=== PATIENT | female | born 1930 | race Caucasian/White ===

== ENCOUNTER → 2016-06-05 | Outpatient (CLI) | payer MEDICARE ==
--- NOTE | 2016-06-08 07:52 | MM ---
Reason for exam: additional evaluation requested from abnormal screening. Last mammogram was performed 1 month ago. History: Patient is postmenopausal. Stereotactic core biopsy of the right breast, 1997. Physical Findings: Nurse did not find any significant physical abnormalities on exam. MG 3D Work Up W/Cad RT LM, CC with magnification, and LM with magnification view(s) were taken of the right breast. Prior study comparison: May 15, 2016, bilateral MG 3d screening mammo w/cad. March 18, 2015, bilateral MG screening mammo w CAD. There are scattered fibroglandular densities. Finding: There are typically benign calcifications in the right breast. There is a chronic nodularity in the right breast. No significant changes in finding since May 15, 2016 and March 18, 2015. These results were verbally communicated with the patient and result sheet given to the patient on 06/05/16. ASSESSMENT: Benign, BI-RAD 2 RECOMMENDATION: Return to routine screening mammogram schedule for both breasts.
== END | disposition home or self-care (01) ==
LOC: RADMAMWWP 13:57
PROVIDERS: ATTEND Family Medicine
DX: R92.8 Other abnormal and inconclusive findings on diagnostic imaging of breast (principal)
CPT/HCPCS: 77051; G0206; G0279

== ENCOUNTER → 2017-08-13 | Outpatient (CLI) | payer MEDICARE ==
--- NOTE | 2017-08-16 11:28 | MM ---
Reason for exam: screening (asymptomatic). Last mammogram was performed 1 year and 2 months ago. History: Patient is postmenopausal. Stereotactic core biopsy of the right breast, 1997. Physical Findings: A clinical breast exam by your physician is recommended on an annual basis and results should be correlated with mammographic findings. MG 3D Screening Mammo W/Cad Bilateral CC and MLO view(s) were taken. Prior study comparison: June 05, 2016, right breast MG 3d work up w/cad RT. May 15, 2016, bilateral MG 3d screening mammo w/cad. There are scattered fibroglandular densities. Finding #1: There is a stable mass in the upper outer quadrant of the right breast back to 2015. Finding #2: There are typically benign diffuse/scattered calcifications in both breasts. No suspicious abnormality. No significant changes in finding since June 05, 2016 and May 15, 2016. ASSESSMENT: Benign, BI-RAD 2 RECOMMENDATION: Routine screening mammogram of both breasts in 1 year.
== END | disposition home or self-care (01) ==
LOC: RADMAMWWP 15:10
PROVIDERS: ATTEND Family Medicine
DX: Z12.31 Encounter for screening mammogram for malignant neoplasm of breast (principal)
CPT/HCPCS: 77063; 77067

== ENCOUNTER 2018-06-08 10:59 | Observation (INO) | payer MEDICARE ==
--- NOTE | 2018-06-08 12:18 | ED ---
Chest Pain HPI - General Chief Complaint: Chest Pain Stated Complaint: L Arm Pain, SOB Time Seen by Provider: 06/08/18 11:13 Source: patient, RN notes reviewed Mode of arrival: wheelchair Limitations: no limitations - History of Present Illness Initial Comments: 88-year-old female presented emergency Department chief complaint of left arm pain, low heart rate. Patient states that she just feels this abnormal sensation to left-sided chest she does not describe wrist pain but states that she feels like her heart is not beating properly. She did take nitro last night which helped. Patient states that she woke up today with left arm pain. Patient is concerned that she's does have cardiac history. Patient states last stress test or workup was several years ago. She has had some intermittent shortness breath no current shortness breath no fever no chills no URI symptoms. Patient denies any nausea vomiting diarrhea constipation. - Related Data Home Medications Medication Instructions Recorded Confirmed Lisinopril [Zestril] 10 mg PO PC-SUPPER 06/08/18 06/08/18 Omeprazole [PriLOSEC] 20 mg PO PC-BRKFST 06/08/18 06/08/18 Rosuvastatin [Crestor] 10 mg PO PC-SUPPER 06/08/18 06/08/18 Allergies Allergy/AdvReac Type Severity Reaction Status Date / Time No Known Allergies Allergy Verified 06/08/18 12:47 Review of Systems ROS Statement: Those systems with pertinent positive or pertinent negative responses have been documented in the HPI. ROS Other: All systems not noted in ROS Statement are negative. EKG Findings - EKG Comments: EKG Findings:: EKG performed at 12:26 sinus bradycardia with a rate of 59 ND 174 QRS 88 QT/QTC 414/409 Past Medical History Past Medical History: GERD/Reflux, Hyperlipidemia, Hypertension History of Any Multi-Drug Resistant Organisms: None Reported Past Surgical History: Hysterectomy, Orthopedic Surgery Additional Past Surgical History / Comment(s): L carpal tunnel Past Psychological History: No Psychological Hx Reported Smoking Status: Never smoker Past Alcohol Use History: None Reported Past Drug Use History: None Reported General Exam General appearance: alert, in no apparent distress Head exam: Present: atraumatic, normocephalic, normal inspection Eye exam: Present: normal appearance, PERRL, EOMI. Absent: scleral icterus, conjunctival injection, periorbital swelling ENT exam: Present: normal exam, normal oropharynx, mucous membranes moist, TM's normal bilaterally Neck exam: Present: normal inspection, full ROM. Absent: tenderness, meningismus, lymphadenopathy Respiratory exam: Present: normal lung sounds bilaterally. Absent: respiratory distress, wheezes, rales, rhonchi, stridor Cardiovascular Exam: Present: regular rate, normal rhythm, normal heart sounds. Absent: systolic murmur, diastolic murmur, rubs, gallop, clicks GI/Abdominal exam: Present: soft, normal bowel sounds. Absent: distended, tenderness, guarding, rebound, rigid Neurological exam: Present: alert, oriented X3, CN II-XII intact Skin exam: Present: warm, dry, intact, normal color. Absent: rash Course Vital Signs 06/08/18 11:05 Temperature 98 F Pulse Rate 63 Respiratory 18 Rate Blood Pressure 145/80 O2 Sat by Pulse 100 Oximetry Chest Pain [facility] 88-year-old female presented for left arm pain, chest pressure. Patient will be admitted for ACS rule out. Patient had prior relief with nitro. Patient's lab work, EKG unremarkable. Disposition Clinical Impression: Chest pain Disposition: ADMITTED IP TO THIS HOSP Condition: Stable Referrals: Luz Donohue MD [Primary Care Provider] - 1-2 days
--- NOTE | 2018-06-08 12:25 | XR ---
EXAMINATION TYPE: XR chest 2V DATE OF EXAM: 06/08/2018 COMPARISON: 02/07/2010 TECHNIQUE: PA and lateral views submitted. HISTORY: Chest pain FINDINGS: The lungs are clear and there is no pneumothorax, pleural effusion, or focal pneumonia. Atheroscler otic change aorta. No overt failure. Hypertrophic and degenerative changes of the spine. IMPRESSION: 1. No acute process.
[2018-06-08 12:47] LABS: INR 0.9 (<1.2); Partial Thromboplastin Time 23.1 sec (22.0-30.0); Prothrombin Time 10.2 sec (9.0-12.0)
[2018-06-08 12:48] LABS: Basophils # (A) 0.1 k/uL (0-0.2); Basophils % (A) 1 %; Eosinophils # (A) 0.3 k/uL (0-0.7); Eosinophils % (A) 3 %; HCT 40.3 % (34.0-46.0); Lymphocytes # (A) 2.4 k/uL (1.0-4.8); Lymphocytes % (A) 28 %; MCH 31.8 pg (25.0-35.0); MCHC 34.6 g/dL (31.0-37.0); MCV 91.9 fL (80.0-100.0); Mean Platelet Volume 7.6; Monocytes # (A) 0.4 k/uL (0-1.0); Monocytes % (A) 4 %; Neutrophils # (A) 5.3 k/uL (1.3-7.7); Neutrophils % (A) 62 %; Platelet Count 213 k/uL (150-450); RBC 4.39 m/uL (3.80-5.40); RDW 13.2 % (11.5-15.5); WBC 8.5 k/uL (3.8-10.6)
[2018-06-08 13:00] LABS: Anion Gap 7 mmol/L; Blood Urea Nitrogen 21 mg/dL (7-17); Calcium 9.5 mg/dL (8.4-10.2); Carbon Dioxide 26 mmol/L (22-30); Chloride 109 mmol/L (98-107); Glucose 119 mg/dL (74-99); Magnesium 2.1 mg/dL (1.6-2.3); Potassium 4.3 mmol/L (3.5-5.1); Sodium 142 mmol/L (137-145)
[2018-06-08 13:01] LABS: ALT 28 U/L (9-52); AST 18 U/L (14-36); Albumin 4.1 g/dL (3.5-5.0); Alkaline Phosphatase 48 U/L (38-126); Total Bilirubin 0.3 mg/dL (0.2-1.3); Total Protein 6.5 g/dL (6.3-8.2)
[2018-06-08 13:02] LABS: Creatine Kinase 47 U/L (30-135)
[2018-06-08 13:14] LABS: Creatine Kinase MB 1.5 ng/mL (0.0-2.4); Troponin I <0.012 ng/mL (0.000-0.034)
[2018-06-08] MEDS ORDERED: NITROGLYCERIN SL TABS 0.4 MG TAB SUBLINGUAL PRN (13:50)
[2018-06-08] MEDS ORDERED: HEPARIN SODIUM,PORCINE 5,000 UNIT/ML 1 ML VIAL IV ONE (13:50)
[2018-06-08] MEDS ORDERED: ASPIRIN 81 MG PO STA (13:50)
[2018-06-08] MEDS ORDERED: HEPARIN SOD,PORK IN 0.45% NACL 25,000 UNIT in 0.45% NACL 1 250ML.BAG IV SCH (14:00)
--- NOTE | 2018-06-08 16:52 | P.HPIM ---
History of Present Illness 88-year-old female came in at the pain in the posterior aspect of the left arm denied any clear-cut chest pain was mild pain lasted only for a few minutes relieved with nitroglycerin. Patient gave me a vague history that she had pain in the left chest wall ago never had any heart problems does follow with Dr. Mckeon on for leaky valves. Patient denied any fever chills patient had lightheadedness patient chest pain is nonexertional nonpleuritic not associated with food. since I can't find her EKG order another EKG now. Patient denied any cough runny nose. Chest x-ray did not show any pneumonic process. Review of Systems REVIEW OF SYSTEMS: CONSTITUTIONAL: No fever, no malaise, no fatigue. HEENT: No recent visual problems or hearing problems. Denied any sore throat. CARDIOVASCULAR: No orthopnea, PND, no palpitations, no syncope. PULMONARY: No shortness of breath, no cough, no hemoptysis. GASTROINTESTINAL: No diarrhea, no nausea, no vomiting, no abdominal pain. NEUROLOGICAL: No headaches, no weakness, no numbness. HEMATOLOGICAL: Denies any bleeding or petechiae. GENITOURINARY: Denies any burning micturition, frequency, or urgency. MUSCULOSKELETAL/RHEUMATOLOGICAL: Denies any joint pain, swelling, or any muscle pain. ENDOCRINE: Denies any polyuria or polydipsia. The rest of the 14-point review of systems is negative. Past Medical History Past Medical History: GERD/Reflux, Hyperlipidemia, Hypertension History of Any Multi-Drug Resistant Organisms: None Reported Past Surgical History: Hysterectomy, Orthopedic Surgery Additional Past Surgical History / Comment(s): L carpal tunnel Past Psychological History: No Psychological Hx Reported Smoking Status: Never smoker Past Alcohol Use History: None Reported Past Drug Use History: None Reported Medications and Allergies Home Medications Medication Instructions Recorded Confirmed Type Ezetimibe [Zetia] 10 mg PO PC-SUPPER 06/08/18 06/08/18 History Lisinopril [Zestril] 10 mg PO PC-SUPPER 06/08/18 06/08/18 History Omeprazole [PriLOSEC] 20 mg PO PC-BRKFST 06/08/18 06/08/18 History Rosuvastatin [Crestor] 10 mg PO PC-SUPPER 06/08/18 06/08/18 History Allergies Allergy/AdvReac Type Severity Reaction Status Date / Time No Known Allergies Allergy Verified 06/08/18 12:47 Physical Exam Vitals: Vital Signs Temp Pulse Resp BP Pulse Ox 06/08/18 15:00 60 18 136/63 98 06/08/18 11:05 98 F 63 18 145/80 100 Intake and Output 06/08/18 06/08/18 06/08/18 06:59 14:59 22:59 Other: Weight 64.41 kg PHYSICAL EXAMINATION: GENERAL: The patient is alert and oriented x3, not in any acute distress. Well developed, well nourished. HEENT: Pupils are round and equally reacting to light. EOMI. No scleral icterus. No conjunctival pallor. Normocephalic, atraumatic. No pharyngeal erythema. No thyromegaly. CARDIOVASCULAR: S1 and S2 present. there is a loud P2 there may be a mitral systolic murmur PULMONARY: Chest is clear to auscultation, no wheezing or crackles. ABDOMEN: Soft, nontender, nondistended, normoactive bowel sounds. No palpable organomegaly. MUSCULOSKELETAL: No joint swelling or deformity. EXTREMITIES: No cyanosis, clubbing, or pedal edema. NEUROLOGICAL: Gross neurological examination did not reveal any focal deficits. SKIN: No rashes. Results CBC & Chem 7: 06/08/18 12:02 06/08/18 12:02 Labs: Abnormal Lab Results - Last 24 Hours (Table) 06/08/18 Range/Units 12:02 Chloride 109 H (98-107) mmol/L BUN 21 H (7-17) mg/dL Glucose 119 H (74-99) mg/dL Assessment and Plan Plan: -chest pain we'll rule out a concurrent syndromes with stool more sets of troponins I'll obtain an EKG cardiology will evaluate the patient stress test as per them -Gastroesophageal reflux disease - hyperlipidemia -Hypertension -Possible mitral regurgitationand possible pulmonary hypertension
[2018-06-08] MEDS ORDERED: LISINOPRIL 10 MG TAB PO SCH (18:30)
[2018-06-08] MEDS ORDERED: EZETIMIBE 10 MG TAB PO SCH (18:30)
[2018-06-08] MEDS ORDERED: ATORVASTATIN 20 MG TAB PO SCH (18:30)
[2018-06-08 19:05] LABS: Creatine Kinase 43 U/L (30-135)
[2018-06-08 19:17] LABS: Creatine Kinase MB 1.4 ng/mL (0.0-2.4); Troponin I <0.012 ng/mL (0.000-0.034)
[2018-06-08 23:40] LABS: Creatine Kinase 38 U/L (30-135)
[2018-06-08 23:41] LABS: Cholesterol 106 mg/dL (<200); HDL Cholesterol 49 mg/dL (40-60); LDL Cholesterol,Calculated 39 mg/dL (0-99); Triglycerides 92 mg/dL (<150)
[2018-06-08 23:53] LABS: Creatine Kinase MB 1.3 ng/mL (0.0-2.4); Troponin I <0.012 ng/mL (0.000-0.034)
[2018-06-09] MEDS ORDERED: PANTOPRAZOLE 40 MG TABLET PO SCH (07:30)
[2018-06-09] MEDS ORDERED: ASPIRIN 325 MG TAB PO SCH (09:00)
[2018-06-09] MEDS ORDERED: CAFFEINE CITRATE 60 MG/3 ML VIAL IV PRN (09:07)
[2018-06-09] MEDS ORDERED: REGADENOSON 0.4 MG/5 ML SYRINGE IV ONE (09:07)
--- NOTE | 2018-06-09 11:09 | P.CRDCN ---
History of Present Illness History of present illness: This is a pleasant 88-year-old female past medical history significant for hypertension and dyslipidemia. She denies history of coronary artery disease. She follows with Dr. Mckeon in the office. We have been asked to see her in consultation for symptoms of chest discomfort. She states yesterday she felt an odd sensation in the chest described as "heart not beating right" but denies any actual pain. Also felt a pain in the left upper arm described as an ache, lasting for approximately 8 hours off and on all day yesterday. She cannot specifically state and aggravating or alleviating factors is that the pain was intermittent all day. She did do some moving in her kitchen to wash the counters for a new microwave the day before. Denies shortness of breath, palpitations, nausea, vomiting or diaphoresis. Pain in the arm has subsided but she feels a sore ache in between the shoulder blades that started last night. EKG reveals sinus bradycardia heart rate [address] or T wave abnormalities noted. Chest x-ray is negative for acute cardiopulmonary process. Laboratory data reviewed, WBC 8.5, hemoglobin 14, platelets 213, sodium 142, potassium 4.3, creatinine 0.62, magnesium 2.1, cardiac enzymes negative 3, LDL 39 HDL 49. Current cardiac medications include lisinopril 10 mg daily and rosuvastatin 10 mg daily. Most recent stress test performed in the office 2016 revealed good exercise tolerance with normal EKG response to exercise with no evidence of stress- induced ischemia. Fixed apical wall defect consistent with soft tissue attenuation. Most recent echocardiogram obtained in the office in 2016 reveals preserved left ventricular systolic function with ejection fraction 55%, impaired diastolic relaxation, mild mitral regurgitation and mild left ventricular concentric hypertrophy. 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 Flow At the time of my exam: CONSTITUTIONAL: Denies fever. Denies chills. EYES: Denies blurred vision. Denies vision changes. Denies eye pain. EARS, NOSE, MOUTH & THROAT: Denies headache. Denies sore throat. Denies ear pain. CARDIOVASCULAR: Denies chest pain. Denies shortness of breath. Denies orthopnea. Denies PND. Denies palpitations. RESPIRATORY: Denies cough. GASTROINTESTINAL: Denies abdominal pain. Denies diarrhea. Denies constipation. Denies nausea. Denies vomiting. MUSCULOSKELETAL: Complains of intermittent mid-scapular pain. INTEGUMENTARY: Denies pruitis. Denies rash. NEUROLOGIC: Denies numbness. Denies tingling. Denies weakness. PSYCHIATRIC: Denies anxiety. Denies depression. ENDOCRINE: Denies fatigue. Denies weight change. Denies polydipsia. Denies polyurina. GENITOURINARY: Denies burning, hematuria or urgency with micturation. HEMATOLOGIC: Denies history of anemia. Denies bleeding. Blood pressure 117/69 heart rate 66 afebrile maintaining oxygen saturation on room air GENERAL: This is a 88-year-old female in no apparent distress at the time of my examination. HEENT: Head is atraumatic, normocephalic. Pupils are equal, round. Sclerae anicteric. Conjunctivae are clear. Mucous membranes of the mouth are moist. Neck is supple. There is no jugular venous distention. No carotid bruit is heard. LUNGS: Clear to auscultation no wheezes, rales or rhonchi. No chest wall tenderness is noted on palpation or with deep breathing. HEART: Regular rate and rhythm with systolic ejection murmur at the base, no rubs or gallops. S1 and S2 heard. ABDOMEN: Soft, nontender. Bowel sounds are heard. No organomegaly noted. EXTREMITIES: No evidence of peripheral edema and no calf tenderness noted. VASCULAR: Radial and dorsalis pedis pulses palpated, no evidence of clubbing. NEUROLOGIC: Patient is awake, alert and oriented x3. ASSESSMENT Chest pain, atypical. An acute coronary event has been ruled out with no EKG evidence of ischemia negative cardiac enzymes. Hypertension Dyslipidemia PLAN An acute coronary event has been ruled out with no EKG evidence of ischemia negative cardiac enzymes. Obtain 2-D echocardiogram and Doppler study to assess cardiac structure and function. Perform Cardiolite stress test to assess for reversible cardiac ischemia. Continue lisinopril rosuvastatin at home doses. If stress test is normal she is stable from a cardiac perspective. Thank you kindly for this consultation. Nurse Practitioner note has been reviewed, I agree with a documented findings and plan of care. Patient was seen and examined. Past Medical History Past Medical History: GERD/Reflux, Hyperlipidemia, Hypertension History of Any Multi-Drug Resistant Organisms: None Reported Past Surgical History: Hysterectomy, Orthopedic Surgery Additional Past Surgical History / Comment(s): Barb rojasal tunnel Past Anesthesia/Blood Transfusion Reactions: No Reported Reaction Past Psychological History: No Psychological Hx Reported Smoking Status: Never smoker Past Alcohol Use History: None Reported Past Drug Use History: None Reported Medications and Allergies Home Medications Medication Instructions Recorded Confirmed Type Ezetimibe [Zetia] 10 mg PO PC-SUPPER 06/08/18 06/08/18 History Lisinopril [Zestril] 10 mg PO PC-SUPPER 06/08/18 06/08/18 History Omeprazole [PriLOSEC] 20 mg PO PC-BRKFST 06/08/18 06/08/18 History Rosuvastatin [Crestor] 10 mg PO PC-SUPPER 06/08/18 06/08/18 History Allergies Allergy/AdvReac Type Severity Reaction Status Date / Time No Known Allergies Allergy Verified 06/08/18 12:47 Physical Exam Vitals: Vital Signs Temp Pulse Pulse Resp BP BP Pulse Ox 06/09/18 03:59 98.0 F 66 15 127/60 97 06/09/18 03:27 16 06/08/18 23:53 16 06/08/18 23:38 98.2 F 62 15 128/64 97 06/08/18 20:00 97.7 F 59 L 18 133/70 98 06/08/18 18:35 66 18 06/08/18 17:15 97.9 F 66 18 164/76 98 06/08/18 16:59 98.0 F 64 18 133/70 98 06/08/18 15:00 60 18 136/63 98 06/08/18 11:05 98 F 63 18 145/80 100 Intake and Output 06/08/18 06/09/18 06/09/18 22:59 06:59 14:59 Intake Total 360 Balance 360 Intake: Oral 360 Other: Voiding Method Toilet Toilet # Voids 1 1 Weight 67.1 kg Results 06/08/18 12:02 06/08/18 12:02 Cardiac Enzymes 06/08/18 06/08/18 06/08/18 Range/Units 12:02 12:02 18:25 AST 18 (14-36) U/L CK-MB (CK-2) 1.5 1.4 (0.0-2.4) ng/mL Troponin I <0.012 <0.012 (0.000-0.034) ng/mL 06/08/18 Range/Units 22:23 AST (14-36) U/L CK-MB (CK-2) 1.3 (0.0-2.4) ng/mL Troponin I <0.012 (0.000-0.034) ng/mL Coagulation 06/08/18 06/08/18 Range/Units 12:02 22:23 PT 10.2 (9.0-12.0) sec APTT 23.1 58.7 H (22.0-30.0) sec Lipids 06/08/18 Range/Units 12:02 Triglycerides 92 (<150) mg/dL Cholesterol 106 (<200) mg/dL HDL Cholesterol 49 (40-60) mg/dL CBC 06/08/18 Range/Units 12:02 WBC 8.5 (3.8-10.6) k/uL RBC 4.39 (3.80-5.40) m/uL Hgb 14.0 (11.4-16.0) gm/dL Hct 40.3 (34.0-46.0) % Plt Count 213 (150-450) k/uL Comprehensive Metabolic Panel 06/08/18 Range/Units 12:02 Sodium 142 (137-145) mmol/L Potassium 4.3 (3.5-5.1) mmol/L Chloride 109 H (98-107) mmol/L Carbon Dioxide 26 (22-30) mmol/L BUN 21 H (7-17) mg/dL Creatinine 0.62 (0.52-1.04) mg/dL Glucose 119 H (74-99) mg/dL Calcium 9.5 (8.4-10.2) mg/dL AST 18 (14-36) U/L ALT 28 (9-52) U/L Alkaline Phosphatase 48 (38-126) U/L Total Protein 6.5 (6.3-8.2) g/dL Albumin 4.1 (3.5-5.0) g/dL Current Medications Generic Name Dose Route Start Last Admin Trade Name Freq PRN Reason Stop Dose Admin Aspirin 325 mg 06/09/18 09:00 Aspirin PO DAILY [facility] Atorvastatin Calcium 20 mg 06/08/18 18:30 06/08/18 18:20 Lipitor PO 20 mg PC-SUPPER RUBEN Administration Ezetimibe 10 mg 06/08/18 18:30 06/08/18 18:20 Zetia PO 10 mg PC-SUPPER RUBEN Administration Heparin Sodium/Sodium Chloride 250 mls @ 7.72 mls/hr 06/08/18 14:00 06/08/18 15:55 25,000 unit/ Sodium Chloride IV 12 units/kg/hr .Q24H RUBEN 7.72 mls/hr Administration Protocol 12 UNITS/KG/HR Lisinopril 10 mg 06/08/18 18:30 06/08/18 18:20 Zestril PO 10 mg PC-SUPPER RUBEN Administration Nitroglycerin 0.4 mg 06/08/18 13:50 Nitrostat SUBLINGUAL Q5M PRN Chest Pain Pantoprazole Sodium 40 mg 06/09/18 07:30 Protonix PO AC-BRKFST [facility] Intake and Output 06/08/18 06/09/18 06/09/18 22:59 06:59 14:59 Intake Total 360 Balance 360 Intake: Oral 360 Other: Voiding Method Toilet Toilet # Voids 1 1 Weight 67.1 kg 06/08/18 12:02 06/08/18 12:02
[2018-06-09 12:36] VITALS: BP 115/73; PULSE 68; RESP 16; TEMP 97.5
--- NOTE | 2018-06-09 12:42 | NM ---
EXAMINATION TYPE: NM stress cardiolite complete DATE OF EXAM: 06/09/2018 COMPARISON: NONE HISTORY: Chest pain TECHNIQUE: After the intravenous administration of 10.3 mCi Tc 99m Sestamibi - Rest images obtained 45 minutes post injection. The patient exercised using a BARBARA protocol and 1 minute prior to peak exercise was injected with 24.6 mCi Tc 99m Sestamibi - Stress images obtained 20 minutes post injecti on. FINDINGS: Targeted heart rate was achieved during performance of the study. Review of stress and rest SPECT salena ges demonstrates decreased radio pharmaceutical uptake along the inferolateral left ventricle greater on rest images than on stress images.. Gated analysis shows normal wall motion with an estimated le ft ventricular ejection fraction of 65 %. IMPRESSION: No scintigraphic evidence for reversible ischemia
--- NOTE | 2018-06-09 14:06 | P.DS ---
Providers Date of admission: 06/08/18 13:58 Attending physician: Ingrid Hansen Consults: 06/08/18 13:50 Consult Physician Urgent Consulting Provider: Can Tian Consult Reason/Comments: chest pain Do you want consulting provider notified?: Yes Primary care physician: Luz Charanjit [facility] Course: Patient came in with complaints of chest pain ruled out acute colitis syndromes patient appears to most was killed adjustment patient underwent stress test which did not show any inducible ischemia. If cleared by cardiology patient will be discharged today. And cutting down the dose of lisinopril depending on the blood pressures here. PHYSICAL EXAMINATION: GENERAL: The patient is alert and oriented x3, not in any acute distress. Well developed, well nourished. HEENT: Pupils are round and equally reacting to light. EOMI. No scleral icterus. No conjunctival pallor. Normocephalic, atraumatic. No pharyngeal erythema. No thyromegaly. CARDIOVASCULAR: S1 and S2 present. No murmurs, rubs, or gallops. PULMONARY: Chest is clear to auscultation, no wheezing or crackles. ABDOMEN: Soft, nontender, nondistended, normoactive bowel sounds. No palpable organomegaly. MUSCULOSKELETAL: No joint swelling or deformity. EXTREMITIES: No cyanosis, clubbing, or pedal edema. NEUROLOGICAL: Gross neurological examination did not reveal any focal deficits. SKIN: No rashes. Other chronic medical problems hospitalization course please refer to my HPI from yesterday Patient Condition at Discharge: Stable Plan - Discharge Summary Discharge Rx Participant: Yes New Discharge Prescriptions: Continue Rosuvastatin [Crestor] 10 mg PO PC-SUPPER Omeprazole [PriLOSEC] 20 mg PO PC-BRKFST Ezetimibe [Zetia] 10 mg PO PC-SUPPER Changed Lisinopril [Zestril] 5 mg PO PC-SUPPER #0 Discharge Medication List Ezetimibe [Zetia] 10 mg PO PC-SUPPER 06/08/18 [History] Omeprazole [PriLOSEC] 20 mg PO PC-BRKFST 06/08/18 [History] Rosuvastatin [Crestor] 10 mg PO PC-SUPPER 06/08/18 [History] Lisinopril [Zestril] 5 mg PO PC-SUPPER #0 06/09/18 [Rx] Follow up Appointment(s)/Referral(s): Elizabeth Mckeon MD [STAFF PHYSICIAN] - 2 Weeks Luz Donohue MD [Primary Care Provider] - 3 Days Discharge Disposition: HOME SELF-CARE
--- NOTE | 2018-06-10 08:02 | EST ---
EXERCISE STRESS AGE: 88 SEX: F HT: 60" WT: 147 PROTOCOL: Cardiolite Manjit Stress Test STAGE: 2 DURATION OF EXERCISE: 4:00 HEART RATE REST: 63 BLOOD PRESSURE REST: 170/60 MAXIMUM HEART RATE ACHIEVED: 125 MAXIMUM BLOOD PRESSURE: 226/74 85% MPHR: 113 100% MPHR: 133 METS: 6.0 INDICATIONS: Chest pain. CLINICAL INFORMATION: Baseline EKG revealed normal sinus rhythm without significant ST-T changes. Patient walked on standard Manjit protocol for 4 minutes, achieved a maximal heart rate of 125 beats per minute. She developed fatigue and shortness of breath but did not have any angina or arrhythmia. Resting heart rate was 63 beats per minute and resting blood pressure was 170/60 and heart rate went up to 125 beats per minute and blood pressure was 226/74, and came back to baseline. EKG did not reveal any ST-segment changes to indicate ischemia. By EKG criteria, this is a negative stress test with fair exercise capacity. The nuclear scan results which are more pertinent, will be reported by the radiologist. MMDANIE / ADELEN: [id number] /
--- NOTE | 2018-06-11 06:40 | ECHOF ---
Referral Reason:cp MEASUREMENTS -------- HEIGHT: 152.4 cm WEIGHT: 66.7 kg BP: RVIDd: 2.3 cm (< 3.3) IVSd: 1.0 cm (0.6 - 1.1) LVIDd: 3.6 cm (3.9 - 5.3) LVPWd: 1.5 cm (0.6 - 1.1) IVSs: 1.8 cm LVIDs: 1.8 cm LVPWs: 1.8 cm LAESV Index (A-L): 19.84 ml/m Ao Diam: 2.9 cm (2.0 - 3.7) AV Cusp: 1.0 cm (1.5 - 2.6) LA Diam: 2.9 cm (2.7 - 3.8) MV EXCURSION: 12.842 mm (> 18.000) MV EF SLOPE: 69 mm/s (70 - 150) EPSS: 0.2 cm MV E Marek: 1.16 m/s MV DecT: 161 ms MV A Marek: 1.40 m/s MV E/A Ratio: 0.83 AR PHT: 465 ms RAP: 5.00 mmHg RVSP: 32.88 mmHg FINDINGS -------- Sinus rhythm. This was a technically good study. The left ventricular size is normal. There is mild concentric left ventricular hypertrophy. Overa ll left ventricular systolic function is normal with, an EF between 55 - 60 %. The right ventricle is normal in size and function. The left atrium is normal in size. The right atrium is normal in size. Aortic valve is trileaflet and is mildly thickened. There is mild aortic regurgitation. The mitral valve leaflets are mildly thickened. Mild mitral annular calcification present. Mild m itral regurgitation is present. Mild tricuspid regurgitation present. The right ventricular systolic pressure, as measured by Doppl er, is 32.88mmHg. Pulmonic valve appears structurally normal. The aortic root size is normal. Normal inferior vena cava with normal inspiratory collapse consistent with estimated right atrial pre ssure of 5 mmHg. The pericardium is normal. CONCLUSIONS -------- 1. Sinus rhythm. 2. This was a technically good study. 3. The left ventricular size is normal. 4. There is mild concentric left ventricular hypertrophy. 5. Overall left ventricular systolic function is normal with, an EF between 55 - 60 %. 6. The right ventricle is normal in size and function. 7. The left atrium is normal in size. 8. The right atrium is normal in size. 9. Aortic valve is trileaflet and is mildly thickened. 10. There is mild aortic regurgitation. 11. The mitral valve leaflets are mildly thickened. 12. Mild mitral annular calcification present. 13. Mild mitral regurgitation is present. 14. Mild tricuspid regurgitation present. 15. The right ventricular systolic pressure, as measured by Doppler, is 32.88mmHg. 16. Pulmonic valve appears structurally normal. 17. The aortic root size is normal. 18. Normal inferior vena cava with normal inspiratory collapse consistent with estimated right atrial pressure of 5 mmHg. 19. The pericardium is normal. TRAUMA MANAGER: Erinn James RDCS
== END 2018-06-09 15:20 | disposition home or self-care (01) ==
LOC: EC 10:59 → 1SOBS 13:58
PROVIDERS: ADMIT Hospitalist; ATTEND Hospitalist
DX: R07.89 Other chest pain (principal); M79.622 Pain in left upper arm; I10 Essential (primary) hypertension; I34.0 Nonrheumatic mitral (valve) insufficiency; K21.9 Gastro-esophageal reflux disease without esophagitis; E78.5 Hyperlipidemia, unspecified; Z79.899 Other long term (current) drug therapy; Z90.710 Acquired absence of both cervix and uterus
CPT/HCPCS: 96376; 96365; 99285; 36415; 93005; 93017; 93306; 80061; 80053; 82550; 82553; 83735; 84484; 85025; 85610; 85730; 71046; 78452; G0378 ×2; A9500; J1644 ×2

== ENCOUNTER → 2019-02-06 | Outpatient (CLI) | payer MEDICARE ==
--- NOTE | 2019-02-07 11:34 | MM ---
Reason for exam: screening (asymptomatic). Last mammogram was performed 1 year and 6 months ago. History: Patient is postmenopausal. Stereotactic core biopsy of the right breast, 1997. Physical Findings: A clinical breast exam by your physician is recommended on an annual basis and results should be correlated with mammographic findings. MG 3D Screening Mammo W/Cad Bilateral CC and MLO view(s) were taken. Prior study comparison: August 13, 2017, bilateral MG 3d screening mammo w/cad. June 05, 2016, right breast MG 3d work up w/cad RT. The breast tissue is heterogeneously dense. This may lower the sensitivity of mammography. Benign appearing bilateral calcifications. No suspicious abnormality. No significant changes when compared with prior studies. ASSESSMENT: Benign, BI-RAD 2 RECOMMENDATION: Routine screening mammogram of both breasts in 1 year.
== END | disposition home or self-care (01) ==
LOC: RADMAMWWP 13:03
PROVIDERS: ATTEND Family Medicine
DX: Z12.31 Encounter for screening mammogram for malignant neoplasm of breast (principal)
CPT/HCPCS: 77063; 77067

== ENCOUNTER → 2019-12-15 | Outpatient (CLI) | payer MEDICARE ==
[~2019-12-15] MED LIST: REGADENOSON 0.4 MG/5 ML SYRINGE IV ONE
--- NOTE | 2019-12-15 13:23 | EST ---
EXERCISE STRESS AGE: 89 SEX: F HT: 5'0"` WT: 140 lbs. PROTOCOL: Lexiscan Cardiolite STAGE: DURATION OF EXERCISE: HEART RATE REST: 65 BLOOD PRESSURE REST: 131/55 MAXIMUM HEART RATE ACHIEVED: 89 MAXIMUM BLOOD PRESSURE: 136/63 85% MPHR: 100% MPHR: METS: INDICATIONS: Chest pressure CLINICAL INFORMATION: Baseline rhythm is a sinus mechanism, rate of 65, normal axis and intervals, nonspecific ST-T wave changes. Poor R wave progression. Baseline blood pressure 131/55 mmHg. Patient received an injection of Lexiscan. Electrocardiograph monitoring revealed no evidence of diagnostic ischemic ST deviation. Cardiolite was injected per protocol. CONCLUSION: 1. Nondiagnostic electrocardiograph stress testing. 2. Nuclear images will be reported separately. MMODL / IJN: [id number] /
--- NOTE | 2019-12-15 18:01 | NM ---
EXAMINATION TYPE: NM stress lexiscan cardiolite DATE OF EXAM: 12/15/2019 COMPARISON: Nuclear medicine Cardiolite stress test 06/09/2018 HISTORY: Chest pain TECHNIQUE: After the intravenous administration of 9.7 mCi Tc 99m Sestamibi - Cardiolite resting SPE CT images acquired 70 minutes post injection. The patient received 0.4mg Lexiscan, 26.3 mCi Tc 99m Sestamibi - Stress images obtained [address] injection FINDINGS: Review of stress and rest SPECT images demonstrates reversible perfusion abnormality of the apical an d mid lateral wall. No fixed perfusion defect. Gated analysis shows normal wall motion with an estim ated left ventricular ejection fraction of 48%. TID 1.0 IMPRESSION: 1. Reversible ischemia of the apical and mid lateral. 2. Ejection fraction 40%.
== END | disposition home or self-care (01) ==
LOC: RADNMMAIN 08:17
PROVIDERS: ATTEND Family Medicine
DX: I25.9 Chronic ischemic heart disease, unspecified (principal)
CPT/HCPCS: 93017; 78452; A9500; J2785

== ENCOUNTER → 2019-12-18 | Outpatient (CLI) | payer MEDICARE ==
[2019-12-18 13:21] LABS: Basophils # (A) 0.1 k/uL (0-0.2); Basophils % (A) 1 %; Eosinophils # (A) 0.2 k/uL (0-0.7); Eosinophils % (A) 3 %; HCT 40.3 % (34.0-46.0); HGB 13.8 gm/dL (11.4-16.0); Lymphocytes # (A) 2.1 k/uL (1.0-4.8); Lymphocytes % (A) 32 %; MCH 31.5 pg (25.0-35.0); MCHC 34.1 g/dL (31.0-37.0); MCV 92.2 fL (80.0-100.0); Mean Platelet Volume 7.6; Monocytes # (A) 0.3 k/uL (0-1.0); Monocytes % (A) 5 %; Neutrophils # (A) 3.8 k/uL (1.3-7.7); Neutrophils % (A) 57 %; Platelet Count 273 k/uL (150-450); RBC 4.37 m/uL (3.80-5.40); RDW 12.8 % (11.5-15.5); WBC 6.7 k/uL (3.8-10.6)
[2019-12-18 13:30] LABS: Potassium 4.4 mmol/L (3.5-5.1)
== END | disposition home or self-care (01) ==
LOC: LABPAT 12:09
PROVIDERS: ATTEND Orthopaedic Surgery
DX: Z01.812 Encounter for preprocedural laboratory examination (principal); M16.11 Unilateral primary osteoarthritis, right hip
CPT/HCPCS: 36415; 80051; 85025; 85610; 87070

== ENCOUNTER → 2019-12-28 | Outpatient (CLI) | payer MEDICARE ==
[2019-12-28 14:49] LABS: HCT 39.9 % (34.0-46.0); HGB 12.9 gm/dL (11.4-16.0); MCH 29.9 pg (25.0-35.0); MCHC 32.2 g/dL (31.0-37.0); MCV 92.7 fL (80.0-100.0); Mean Platelet Volume 7.6; Platelet Count 266 k/uL (150-450); RDW 12.8 % (11.5-15.5); WBC 6.9 k/uL (3.8-10.6)
[2019-12-28 14:59] LABS: African American GFR (CKD) >90 (>60 ml/min/1.73 sqM); Anion Gap 6 mmol/L; Blood Urea Nitrogen 17 mg/dL (7-17); Carbon Dioxide 27 mmol/L (22-30); Chloride 103 mmol/L (98-107); Glucose 86 mg/dL (74-99); Non-African American GFR(CKD) 80 (>60 ml/min/1.73 sqM); Potassium 4.6 mmol/L (3.5-5.1); Sodium 136 mmol/L (137-145)
== END | disposition home or self-care (01) ==
LOC: LABPAT 14:08
PROVIDERS: ATTEND Internal Medicine Interventional Cardiology
DX: Z01.818 Encounter for other preprocedural examination (principal); R07.89 Other chest pain; E78.2 Mixed hyperlipidemia
CPT/HCPCS: 36415; 80051; 82565; 82947; 84520; 85027

== ENCOUNTER → 2020-01-02 | Day surgery (SDC) | payer MEDICARE ==
[2019-12-28 08:51] VITALS: BMI 27.3
[~2020-01-02] MED LIST changes: +ALPRAZolam 0.25 MG TAB PO PRN; +ALPRAZolam 0.5 MG TAB PO PRN; +ASPIRIN 325 MG TAB PO ONE; +ASPIRIN 81 MG PO SCH; +ATORVASTATIN 80 MG TAB PO ONE; +EZETIMIBE 10 MG TAB PO SCH; +HEPARIN SODIUM 1,000 UN/ML (10ML VL) IV ONE; +HEPARIN SODIUM 1,000 UN/ML (10ML VL) ONE; +IOPAMIDOL-370 100ML BTL INJ ONE; +ISOSORBIDE MONONITRATE ER 30 MG TAB.ER.24H PO SCH; +LIDOCAINE 1% INJ 10MG/ML (20 ML MDV) ONE; +LIDOCAINE 1% INJ 10MG/ML (20 ML MDV) SQ ONE; +NITROGLYCERIN SL TABS 0.4 MG TAB SUBLINGUAL PRN; +NON FORMULARY DRUG (Omeprazole 40 MG) PO SCH; +NON FORMULARY DRUG (Rosuvastatin 10 MG) PO SCH; -REGADENOSON 0.4 MG/5 ML SYRINGE IV ONE; +RX INFO: IV CONTRAST WAS GIVEN 1 EACH MISC MISCELLANE PRN; +SODIUM CHLORIDE 0.9% 1,000 ML IV SCH; +SODIUM CHLORIDE 0.9% 1,000 ML in EMPTY BAG 1 BAG IV ONE; +VERAPAMIL 2.5 MG/ML 2 ML AMP ONE; +VERAPAMIL SYRINGE (5 MG/10 ML) INTRAARTER ONE; +fentaNYL (PF) 50 MCG/ML 2 ML AMP IVP ONE; +fentaNYL (PF) 50 MCG/ML 2 ML AMP ONE; +lisinopriL 10 MG TAB PO SCH
[2020-01-02 07:16] VITALS: TEMP 98.1
[2020-01-02 07:28] VITALS: RESP 14
--- NOTE | 2020-01-02 09:58 | CC ---
CARDIAC CATHETERIZATION REPORT Mrs. Shcwartz is an 89-year-old female with known history of hypertension, hyperlipidemia, who has been complaining of episode of chest discomfort, at time radiating to the jaw and at times exertional. She underwent myocardial perfusion imaging because of an upcoming total hip replacement, was found to have evidence of lateral wall ischemia. In view of that, recommendation made regarding cardiac catheterization. The procedures, risks, and complications were discussed with the patient who is in full understanding and agreement. PROCEDURE: Patient was brought to medical laboratory technologist in a fasting semi-sedated state after receiving fentanyl and Benadryl and achieving moderate conscious sedated state. Using Xylocaine anesthesia and Seldinger technique, a 6-Georgian sheath was introduced in the right radial artery. Selective right and left coronary angiography performed using 5-Georgian 3.5 bend right and left Jose Carlos catheter, multiple views of the coronary artery including hemiaxial views obtained, the right Jose Carlos was used to cross the aortic valve and left ventricular end-diastolic pressure was calculated. Following that, catheter and sheath were removed. Hemostasis was obtained with deployment of a TR band. There was no immediate complication. Patient was returned to her room in stable condition. Of note, patient received 3,500 units of intravenous heparin as well as intra-arterial verapamil. FINDINGS: FLUOROSCOPY: There was calcification involving the right coronary artery and the left anterior descending artery: LEFT MAIN: This is a short-size vessel, bifurcating into left circumflex, left anterior descending artery. Left main coronary artery has no evidence of high-grade stenosis. LEFT ANTERIOR DESCENDING ARTERY: This vessel tapers down in the distal third. Gives rise to a proximal diagonal branch. The left anterior descending artery has a stent 20% plaque proximally. The rest of the vessel has no high-grade stenosis. LEFT CIRCUMFLEX: This is a nondominant vessel, giving rise to a moderately sized obtuse marginal branch. The left circumflex has no evidence of high-grade stenosis. RIGHT CORONARY ARTERY: This is a large dominant vessel, bifurcating distally into PDA and posterolateral segment and branches. The right PDA reaches toward the apical inferior wall. The right coronary artery has mild plaque in the proximal segment of about 10%. The rest of the vessel has no high-grade stenosis. LEFT VENTRICULOGRAM: Left ventriculogram was not performed. HEMODYNAMICS: There was no gradient across the aortic valve. The left ventricular end- diastolic pressure was 18-20 mmHg. CONCLUSION: 1. Mildly calcified coronary arteries. 2. 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 RECOMMENDATION: In view of finding anatomy, I recommend continue medical therapy with aggressive coronary risk modifications being initiated. Patient should be stable to proceed with her scheduled surgical intervention. Duration of procedure is 14 minutes. MMODL / IJN: [id number] /
[2020-01-02 12:55] VITALS: BP 90/55; PULSE 52
== END ==
LOC: CATHCVL 06:49
PROVIDERS: ATTEND Internal Medicine Interventional Cardiology
DX: I25.10 Atherosclerotic heart disease of native coronary artery without angina pectoris (principal); R07.89 Other chest pain; I25.9 Chronic ischemic heart disease, unspecified; R94.39 Abnormal result of other cardiovascular function study; I10 Essential (primary) hypertension; R60.9 Edema, unspecified; E78.2 Mixed hyperlipidemia; I35.0 Nonrheumatic aortic (valve) stenosis; M19.90 Unspecified osteoarthritis, unspecified site; Z79.899 Other long term (current) drug therapy; Z79.82 Long term (current) use of aspirin; Z79.1 Long term (current) use of non-steroidal anti-inflammatories (NSAID); Z95.5 Presence of coronary angioplasty implant and graft
CPT/HCPCS: 93458; C1769 ×2; C1894; J2001; J3010; J1644; Q9967

== ENCOUNTER → 2020-03-04 | Outpatient (CLI) | payer MEDICARE ==
[2020-03-04 15:02] LABS: Basophils # (A) 0.1 k/uL (0-0.2); Basophils % (A) 1 %; Eosinophils # (A) 0.2 k/uL (0-0.7); Eosinophils % (A) 2 %; HCT 42.5 % (34.0-46.0); HGB 13.9 gm/dL (11.4-16.0); Lymphocytes # (A) 2.1 k/uL (1.0-4.8); Lymphocytes % (A) 30 %; MCH 29.6 pg (25.0-35.0); MCHC 32.7 g/dL (31.0-37.0); MCV 90.7 fL (80.0-100.0); Mean Platelet Volume 7.3; Monocytes # (A) 0.3 k/uL (0-1.0); Monocytes % (A) 4 %; Neutrophils # (A) 4.2 k/uL (1.3-7.7); Neutrophils % (A) 60 %; Platelet Count 292 k/uL (150-450); RBC 4.68 m/uL (3.80-5.40); RDW 13.1 % (11.5-15.5)
[2020-03-04 15:10] LABS: Potassium 4.4 mmol/L (3.5-5.1)
== END | disposition home or self-care (01) ==
LOC: LABPAT 13:00
PROVIDERS: ATTEND Orthopaedic Surgery
DX: Z01.818 Encounter for other preprocedural examination (principal); M16.12 Unilateral primary osteoarthritis, left hip
CPT/HCPCS: 36415; 80051; 85025; 85610

== ENCOUNTER 2020-03-11 07:30 | Inpatient (IN) | payer MEDICARE ==
[2020-03-05 10:21] VITALS: BMI 26.9
--- NOTE | 2020-03-10 11:49 | HP ---
HISTORY AND PHYSICAL REASON FOR ADMISSION: Surgery is scheduled for 03/11/2020. Suzanne Schwartz is an 89-year-old patient seen with symptomatic left hip osteoarthritis. Treatment options discussed. She elected to proceed with left total hip arthroplasty. Consent was obtained. Medical clearance was provided by Dr. Donohue. Cardiac clearance was provided by Dr. Mckeon. PAST MEDICAL HISTORY: Hyperlipidemia and gastroesophageal reflux disease. PAST SURGICAL HISTORY: Carpal tunnel release, hysterectomy. MEDICATIONS: Crestor, Zetia, omeprazole. ALLERGIES: None. SOCIAL HISTORY: She denies current tobacco use. PHYSICAL EXAMINATION: Evaluation of the left hip: She has diffuse tenderness, severe limited range of motion with severe pain. Positive impingement sign. Straight leg raise is negative. Distal neurovascular exam is intact. RADIOGRAPHS: Radiographs of the left hip reveal severe osteoarthritic changes. IMPRESSION: 1. Left hip osteoarthritis. 2. Hyperlipidemia. 3. Gastroesophageal reflux disease. PLAN: Left total hip arthroplasty. Surgery is 03/11/2020. MMODL / IJN: [id number] /
[~2020-03-11 07:30] MED LIST changes: +ACETAMINOPHEN TAB 500 MG TAB PO ONE; -ALPRAZolam 0.25 MG TAB PO PRN; -ALPRAZolam 0.5 MG TAB PO PRN; -ASPIRIN 325 MG TAB PO ONE; -ASPIRIN 81 MG PO SCH; -ATORVASTATIN 80 MG TAB PO ONE; +DEXAMETHASONE SOD PHOSPHATE 10 MG/ML 1 ML VIAL IV ONE; -EZETIMIBE 10 MG TAB PO SCH; -HEPARIN SODIUM 1,000 UN/ML (10ML VL) IV ONE; -HEPARIN SODIUM 1,000 UN/ML (10ML VL) ONE; -IOPAMIDOL-370 100ML BTL INJ ONE; -ISOSORBIDE MONONITRATE ER 30 MG TAB.ER.24H PO SCH; -LIDOCAINE 1% INJ 10MG/ML (20 ML MDV) ONE; -LIDOCAINE 1% INJ 10MG/ML (20 ML MDV) SQ ONE; +MELOXICAM 7.5 MG TAB PO ONE; +MORPHINE SULFATE 2 MG/ML SYRINGE IV PRN; -NITROGLYCERIN SL TABS 0.4 MG TAB SUBLINGUAL PRN; -NON FORMULARY DRUG (Omeprazole 40 MG) PO SCH; -NON FORMULARY DRUG (Rosuvastatin 10 MG) PO SCH; +ONDANSETRON 4 MG/2 ML VIAL IVP ONE; +ROPIVACAINE 246.25 MG, EPINEPHrine 0.5 MG, KETOROLAC 30 MG, cloNIDine HCL/PF 80 MCG, WA... MISCELLANE ONE; -RX INFO: IV CONTRAST WAS GIVEN 1 EACH MISC MISCELLANE PRN; -SODIUM CHLORIDE 0.9% 1,000 ML IV SCH; -SODIUM CHLORIDE 0.9% 1,000 ML in EMPTY BAG 1 BAG IV ONE; +TRANEXAMIC ACID 1,000 MG in SODIUM CHLORIDE 0.9% 100 ML IVPB ONE; -VERAPAMIL 2.5 MG/ML 2 ML AMP ONE; -VERAPAMIL SYRINGE (5 MG/10 ML) INTRAARTER ONE; -fentaNYL (PF) 50 MCG/ML 2 ML AMP IVP ONE; -fentaNYL (PF) 50 MCG/ML 2 ML AMP ONE; -lisinopriL 10 MG TAB PO SCH
[2020-03-11] MEDS: LACTATED RINGERS 1,000 ML IV SCH ×2 (09:43→14:09)
[2020-03-11] MEDS ORDERED: SODIUM CHLORIDE 0.9% 100 ML BAG ONE (09:56)
[2020-03-11] MEDS ORDERED: fentaNYL (PF) 50 MCG/ML 2 ML AMP ONE (09:56)
[2020-03-11] MEDS ORDERED: PROPOFOL 10 MG/ML 20 ML VIAL IV ONE (09:56)
[2020-03-11] MEDS ORDERED: TRANEXAMIC ACID 1,000 MG/10 ML VIAL ONE (09:56)
[2020-03-11] MEDS ORDERED: ePHEDrine SULFATE/0.9% NACL/PF 50 MG/5 ML SYRINGE IV ONE (09:56)
[2020-03-11] MEDS ORDERED: ceFAZolin 1,000 MG in SODIUM CHLORIDE 0.9% 1,000 ML IRRIGATION ONE (10:28)
[2020-03-11] MEDS ORDERED: NALOXONE 0.4 MG/ML 1 ML VIAL IV PRN (11:34)
[2020-03-11] MEDS ORDERED: HYDROmorphone 0.5 MG/0.5 ML SYRINGE IVP PRN ×3 (11:34)
[2020-03-11] MEDS ORDERED: HYDROcodone/APAP 5-325MG 1 EACH TAB PO PRN ×2 (11:34)
[2020-03-11] MEDS ORDERED: ONDANSETRON 4 MG/2 ML VIAL IVP PRN (11:34)
--- NOTE | 2020-03-11 11:34 | P.OP ---
Date of Procedure: 03/11/20 Preoperative Diagnosis: Left hip osteoarthritis Postoperative Diagnosis: Left hip osteoarthritis Procedure(s) Performed: Direct anterior left total hip arthroplasty Implants: 1. Depuy Corail 125 standard collar size 11 press-fit femoral stem 2. Depuy pinnacle 52 mm multihole press-fit acetabular shell 3. Depuy pinnacle acetabular liner neutral 36 mm ID 50 mm OD 4. Biolox delta ceramic femoral head +1.5 36 mm Anesthesia: local, spinal Surgeon: Laurent Richardson Loom Winder Tender #1: Kimo Nunez Estimated Blood Loss (ml): 200 Pathology: other (Femoral head) Condition: stable Disposition: PACU Indications for Procedure: 89-year-old patient seen with symptomatic left hip osteoarthritis. After treatment options were discussed, she elected to proceed with total hip arthroplasty.8 Operative Findings: See description of procedure Description of Procedure: The patient was taken to the operative suite. Patient underwent a spinal anesthetic by the department of anesthesia. Patient was then transferred to the Gage table. Patient was given preoperative IV antibiotics and TXA. Both lower extremities were placed in standard leg spars. The hip was then prepped and draped in the normal sterile orthopedic fashion. A standard anterior incision was made beginning 3 cm lateral and 1 cm distal to the ASIS extending 10 cm. Dissection was then carried down through the subcutaneous soft tissues down to the fascia overlying the tensor fascia barry. An incision was now made through the fascia. Careful dissection was taken down exposing the tensor fascia barry muscle. A Cobra retractor was now placed along the medial femoral neck and a second one along the lateral femoral neck. The venous circumflex vessels were now identified, cauterized and clipped. We identified the anterior hip capsule. An incision was made through the hip capsule along the lateral border. I performed a partial anterior capsulectomy. Retractors were now placed around the femoral neck itself. A femoral neck cut was now made with a sagittal saw. It was completed with an osteotome at the lateral neck area. The femoral head was now removed without difficulty. The extremity was now rotated to 45 of external rotation. It was locked in position. Residual labrum was now debrided out. Serial reaming was performed of the acetabulum while Len CARPIO assisted holding an anterior retractor for exposure. Once we reached the appropriate size and a trial was position and fit nicely. The appropriate size was now chosen opened and made available. It was introduced into the acetabulum without difficulty. The C-arm/fluoroscopy was now brought into the operative field. We made sure we had a true AP pelvic view. We now under direct C- arm/fluoroscopy introduced into the acetabular component with appropriate version and inclination. I held the cup in appropriate position well Len CARPIO used a mallet to seat the acetabular component. I noted the component now to be well seated and stable. Acetabular cup introduce her was removed. The C-arm was pulled back. An appropriate liner was introduced and clicked into position. It was felt to be stable. At this point retractors were removed. The extremity was now placed into 120 external rotation with no traction. The leg was now dropped to the ground and adducted. Appropriate retractors were now positioned along the proximal femur. We also placed our femoral look into position. Additional capsular releasing was performed to gain access to the proximal femur. We now used a box osteotome. A canal finder was now utilized. Serial broaching was now performed with the assistance of Len CARPIO tapping the broaches down with a mallet while held the broach in appropriate rotation and position. This was done until we reached the appropriate size with good overall rotational stability. Appropriate calcar planing was performed. A trial head/neck was placed into position. The hip was now reduced. The C- arm/fluoroscopy was brought back into the operative field. An AP pelvis was obtained noting adequate positioning of leg lengths. The trial components appeared well seated and stable as well. The C-arm/fluoroscopy was pulled back. Retractors were repositioned and the hip was dislocated. The leg was again taken down to the ground and adducted. Appropriate retractors were repositioned as well as the femoral hook. All trial components were removed. The femoral implant was opened along with the femoral head. The femoral implant was introduced on the appropriate handle into our pre-broached area. I held the component position well Len CARPIO used a mallet to seat the femoral component. The femoral component was now noted to be well seated and stable.. The femoral head was introduced with good positioning and fixation noted. Retractors were now removed. The hip was now reduced. There appeared be good positioning of the hip confirmed on intraoperative fluoroscopy. Spot films were obtained to document this. A second gram of TXA was given. The deep and superficial soft tissues were infiltrated with local analgesic. Bipolar cautery had been utilized intermittently through the procedure for hemostasis. The wound was irrigated copiously with pulse lavage mechanical irrigation. The fascia was repaired with Vicryl suture. The subcutaneous soft tissues were repaired in layers with Vicryl suture. The skin was approximated with pernio/Dermabond. Sterile dressings were applied. Patient was then awakened, transferred to a bed and taken to recovery in stable condition. Len CARPIO assisted with the complex procedure.
--- NOTE | 2020-03-11 14:51 | XR ---
EXAMINATION TYPE: XR Hip Limited LT, FL guidance operating room DATE OF EXAM: 03/11/2020 CLINICAL HISTORY: ORIF left hip TECHNIQUE: Fluoroscopy. COMPARISON: None. FINDINGS: Fluoroscopic guidance was provided during procedure for performing physician. A total of 18 seconds of fluoroscopic time was utilized during the procedure and 1 spot images was acquired. Ple ase see operative report for additional details. IMPRESSION: As Above.
[2020-03-11] MEDS ORDERED: EZETIMIBE 10 MG TAB PO SCH (18:30)
[2020-03-11] MEDS ORDERED: SENNOSIDES-DOCUSATE SODIUM 1 EACH TAB PO SCH (21:00)
--- NOTE | 2020-03-11 21:04 | CONS ---
CONSULTATION DATE OF SERVICE: 03/11/2020 REASON FOR CONSULTATION: Advice regarding hypertension and other multiple medical issues, requested by Dr. Richardson. HISTORY OF PRESENT ILLNESS: This 89-year-old woman with a past medical history of GERD, hypertension, hyperlipidemia, history of leaky heart valve, urinary leakage, being followed by Dr. Donohue in the outpatient setting, underwent left total hip joint arthroplasty by Dr. Richardson. The patient tolerated the procedure well. There is no history of any chest pain. No history of palpitation, headache, loss of consciousness, seizures, nausea, vomiting, diarrhea, fever, rigors or chills at this time. Mild postoperative pain is being complained of. PAST MEDICAL HISTORY: DJD, hyperlipidemia, hypertension, leaky valve, GERD, DJD, hysterectomy. HOME MEDICATIONS: 1. Crestor 10 mg q.48 hours. 2. Multivitamins 1 p.o. daily. 3. Osteo Bi-Flex. 4. Coenzyme Q. 5. Vitamin D3. 6. Vitamin C. 7. Tylenol Extra Strength. 8. Motrin. 9. Nitrostat. 10.Zestril 10 mg with supper. 11.Prilosec. 12.Zetia 10 mg with supper. ALLERGIES: ISOSORBIDE. FAMILY HISTORY: No history of heart disease or strokes in the family. SOCIAL HISTORY: No history of smoking. No history of alcohol intake. REVIEW OF SYSTEMS: ENT: Diminished hearing. Diminished vision. CARDIOVASCULAR SYSTEM: No angina, palpitations. RESPIRATORY SYSTEM: No cough, hemoptysis. GI: No nausea, vomiting. : No dysuria or retention. NERVOUS SYSTEM: No numbness, weakness. ALLERGY/IMMUNOLOGY: No asthma, hayfever. MUSCULOSKELETAL: As mentioned earlier. HEMATOLOGY/ONCOLOGY: No history of anemia. ENDOCRINE: No history of diabetes, hypothyroidism. CONSTITUTIONAL: As mentioned earlier. DERMATOLOGY: Negative. RHEUMATOLOGY: Negative. PSYCHIATRY: Negative. PHYSICAL EXAMINATION: Patient is alert, oriented x3. Pulse 84, blood pressure 108/60, respiration 20, temperature 98.7, pulse ox 97% on room air. HEENT: Conjunctivae normal. Oral mucosa moist. NECK: No jugular venous distention. No carotid bruit. No lymph node enlargement. CARDIOVASCULAR SYSTEM: S1, S2 muffled. No S3. No S4. RESPIRATORY SYSTEM: Breath sounds diminished at the bases. No rhonchi. No crackles. ABDOMEN: Soft, non-tender. No mass palpable. LEGS: Status post left total joint hemiarthroplasty. NERVOUS SYSTEM: Higher functions as mentioned earlier. Moves all 4 limbs. No focal motor or sensory deficit. LYMPHATICS: No lymph node palpable in neck, axillae or groin. SKIN: No ulcer, rash, bleeding. JOINTS: No active deforming arthropathy. LABS: CBC done previously within normal limits. Coags are within normal limits. Chemistries also within normal limits. ASSESSMENT: 1. Status post left total knee joint arthroplasty. 2. Hypertension. 3. Hyperlipidemia. 4. Gastroesophageal reflux disease. 5. History of leaky heart valve. 6. History of urinary leakage. 7. History hysterectomy. 8. History of degenerative joint disease. RECOMMENDATIONS AND DISCUSSION: I recommend to continue current medications, continue with the monitoring, symptomatic treatment. I recommend holding the blood pressure medication tonight because of the relative slight hypotension and relatively low blood pressure. We will continue to monitor. The patient may be asked to follow up with primary physician closely after discharge. CBC may be repeated tomorrow. Will resume the rest of the medications. Thank you, Dr. Richardson, for letting us participate in the care of this patient. MMODL / IJN: [id number] /
[2020-03-12 04:40] VITALS: RESP 16
[2020-03-12 06:42] LABS: Basophils % (A) 0 %; Eosinophils % (A) 0 %; HCT 33.9 % (34.0-46.0); HGB 11.1 gm/dL (11.4-16.0); Lymphocytes # (A) 2.2 k/uL (1.0-4.8); Lymphocytes % (A) 24 %; MCH 30.7 pg (25.0-35.0); MCHC 32.9 g/dL (31.0-37.0); MCV 93.6 fL (80.0-100.0); Mean Platelet Volume 7.6; Monocytes # (A) 0.4 k/uL (0-1.0); Monocytes % (A) 5 %; Neutrophils # (A) 6.5 k/uL (1.3-7.7); Neutrophils % (A) 70 %; Platelet Count 246 k/uL (150-450); RBC 3.63 m/uL (3.80-5.40); RDW 13.1 % (11.5-15.5); WBC 9.4 k/uL (3.8-10.6)
[2020-03-12] MEDS ORDERED: PANTOPRAZOLE 40 MG TABLET PO SCH (07:30)
[2020-03-12 08:40] VITALS: BP 93/59; PULSE 74; TEMP 98.1
[2020-03-12] MEDS ORDERED: ENOXAPARIN 40 MG/0.4 ML SYRINGE SQ SCH (09:00)
[2020-03-12] MEDS ORDERED: CHOLECALCIFEROL 1,000 UNIT TAB PO SCH (09:00)
[2020-03-12] MEDS ORDERED: MULTIVITAMINS, THERA 1 EACH TAB PO SCH (09:00)
[2020-03-12] MEDS ORDERED: ATORVASTATIN 20 MG TAB PO SCH (09:00)
[2020-03-12] MEDS: LACTATED RINGERS 1,000 ML IV SCH ×2 (09:18→09:22)
--- NOTE | 2020-03-12 11:02 | P.PN ---
Subjective Progress Note Date: 03/12/20 Principal diagnosis: Status post direct anterior left total hip arthroplasty Patient is doing very well today bedside, she's resting comfortably. Her pain is well-controlled. She's done very well with physical therapy. She denies any chest pain or shortness of breath. Objective - Vital Signs Vital signs: Vital Signs Temp 98.1 F 03/12/20 07:00 Pulse 74 03/12/20 07:00 Resp 16 03/12/20 04:12 BP 93/59 03/12/20 07:00 Pulse Ox 96 03/12/20 07:00 Intake & Output 03/11/20 03/12/20 03/12/20 18:59 06:59 18:59 Intake Total 1743 2 Output Total 950 Balance 793 2 Weight 64.5 kg Intake: IV 851 Oral 892 2 Output: Urine 800 Estimated Blood Loss 150 Other: Voiding Method Toilet Toilet # Voids 1 2 - Exam Left lower extremity: Incision is clean, dry, and intact. The foam dressing is in good condition. There is minimal soft tissue swelling and ecchymosis surrounding the medial and lateral aspects of the incision. Calf is soft, no tenderness with palpation. Plantar flexion, dorsiflexion, EHL, FHL are intact. Sensory exam to light touch throughout the extremity is intact, dorsal pedis pulses 2+. - Labs CBC & Chem 7: 03/12/20 05:36 Labs: Abnormal Lab Results - Last 24 Hours (Table) 03/12/20 Range/Units 05:36 RBC 3.63 L (3.80-5.40) m/uL Hgb 11.1 L (11.4-16.0) gm/dL Hct 33.9 L (34.0-46.0) % Assessment and Plan Assessment: Status post direct anterior left total hip arthroplasty Plan: Pain control, plan for discharge home on oral medication DVT prophylaxis, aspirin 81 mg twice a day Home therapy and nursing after discharge Wound instructions discussed Medical recommendations plan for discharge home today Time with Patient: Less than 30
--- NOTE | 2020-03-12 11:04 | P.DS ---
Providers Date of admission: 03/11/20 08:54 Expected date of discharge: 03/12/20 Attending physician: Laurent Richardson Consults: 03/11/20 11:34 Consult Physician Routine Consulting Provider: Ingrid Hansen Consult Reason/Comments: Medical management Do you want consulting provider notified?: Yes Primary care physician: Luz Charanjit [facility] Course: Date of admission: 03/11/2020 Date of discharge: 03/12/2020 Admission diagnosis: Status post direct anterior total hip arthroplasty Discharge diagnosis: Same Attending physician: Dr. Richardson Surgical procedures: Direct anterior left total hip arthroplasty Brief history: Patient is a 89-year-old female with a history of progressive primary left hip osteoarthritis. At this point patient has failed conservative treatment measures and has opted to proceed with a elective direct anterior left total hip arthroplasty. Hospital course: Details of patient's surgery can be found in operative report. Patient tolerated the procedure well and was subsequently transported to orthopedic floor. Patient's orthopeidc and medical care was provided daily. Patient had daily laboratory tests performed for evaluation of overall blood counts. Patient had daily physical therapy to include strengthening range of motion as well as education with walker ambulation. Patient was treated with Lovenox for their postoperative DVT prophylaxis during their inpatient stay. Patient was noted to have a relatively uneventful postoperative course. Patient reported satisfactory pain control with oral pain medications by postoperative day 0. Patient showed satisfactory progress with physical therapy. Patient moved steadily through the program and had no difficulty meeting the goals by postoperative day 1. Given patient's otherwise satisfactory course and having met physical therapy goals, plan is to discharge patient home on postoperative day 1. Discharge condition/disposition: Patient will be discharged home in stable cond ition. Discharge medications: Instructions are given on resumption of patient's normal daily medications per primary care recommendation, in addition patient will be prescribed Inman 5 mg/325 mg, Colace 100 mg, aspirin 81 mg. Discharge instructions: 1. Wound care and infection precautions, [keep incision dry and covered while showering], no lotions, creams, moisturizers. No soaking, tubs, pools, hottubs. Do not scrub over the incision. 2. Weight-bear as tolerated with walker / cane until follow-up. 3. Ice and elevate when necessary. Do not exceed 20 minutes per hour with ice pack. 4. Utilize compression sleeve until seen at first follow up appointment. 5. Visiting nursing care. 6. Home physical therapy 7. Pain meds and anticoagulants per prescription. 8. Pain medication has potential to cause constipation. Increase oral fluid and fiber intake. Contact primary care provider if you have not had a bowel movement within 48 hours after discharge 9. No anti-inflammatory medication until discussed at first post operative visit, this including Motrin, Aleve, Mobic, Diclofenac. 10. Follow up in office at 2 weeks postop with Len Nunez PA-C 11. Follow up with your primary care doctor 7-10 days after discharge. 12. Contact [facility] with any questions, . Procedures: Direct anterior left total hip arthroplasty Patient Condition at Discharge: Good Plan - Discharge Summary Discharge Rx Participant: Yes New Discharge Prescriptions: New Aspirin [Adult Low Dose Aspirin EC] 81 mg PO BID #60 tablet. Docusate [Colace] 100 mg PO DAILY #30 capsule Hydrocodone/Acetaminophen [[place] 5-325] 1 - 2 each PO Q6HR PRN #30 tab PRN Reason: Pain No Action Rosuvastatin [Crestor] 10 mg PO Q48H Ezetimibe [Zetia] 10 mg PO PC-SUPPER lisinopriL [Zestril] 10 mg PO PC-SUPPER Omeprazole [PriLOSEC] 40 mg PO DAILY Nitroglycerin Sl Tabs [Nitrostat] 0.4 mg SUBLINGUAL Q5M PRN PRN Reason: Chest Pain Ibuprofen [Motrin] 400 mg PO DIRECTED PRN PRN Reason: Pain Ubidecarenone [Co Q-10] 200 mg PO DAILY Cholecalciferol [Vitamin D3 (25 Mcg = 1000 Iu)] 2,000 unit PO DAILY Acetaminophen [Tylenol Extra Strength] 500 mg PO DIRECTED PRN PRN Reason: Pain Ascorbic Acid [Vitamin C] 1,000 mg PO DAILY Multivitamins, Thera [Multivitamin (formulary)] 1 tab PO DAILY Glucosamine/Chondr Mccall A Sod [Osteo Bi-Flex Caplet] 2 each PO DAILY Discharge Medication List Ezetimibe [Zetia] 10 mg PO PC-SUPPER 06/08/18 [History] Rosuvastatin [Crestor] 10 mg PO Q48H 06/08/18 [History] lisinopriL [Zestril] 10 mg PO PC-SUPPER 12/28/19 [History] Acetaminophen [Tylenol Extra Strength] 500 mg PO DIRECTED PRN 03/05/20 [History] Ascorbic Acid [Vitamin C] 1,000 mg PO DAILY 03/05/20 [History] Cholecalciferol [Vitamin D3 (25 Mcg = 1000 Iu)] 2,000 unit PO DAILY 03/05/20 [History] Glucosamine/Chondr Mccall A Sod [Osteo Bi-Flex Caplet] 2 each PO DAILY 03/05/20 [History] Ibuprofen [Motrin] 400 mg PO DIRECTED PRN 03/05/20 [History] Multivitamins, Thera [Multivitamin (formulary)] 1 tab PO DAILY 03/05/20 [History] Nitroglycerin Sl Tabs [Nitrostat] 0.4 mg SUBLINGUAL Q5M PRN 03/05/20 [History] Omeprazole [PriLOSEC] 40 mg PO DAILY 03/05/20 [History] Ubidecarenone [Co Q-10] 200 mg PO DAILY 03/05/20 [History] Aspirin [Adult Low Dose Aspirin EC] 81 mg PO BID #60 tablet.dr 03/12/20 [Rx] Docusate [Colace] 100 mg PO DAILY #30 capsule 03/12/20 [Rx] Hydrocodone/Acetaminophen [[place] 5-325] 1 - 2 each PO Q6HR PRN #30 tab 03/12/20 [Rx] Follow up Appointment(s)/Referral(s): Luz Donohue MD [Primary Care Provider] - 1 Week Kimo Nunez PAC [PHYSICIAN [employer]ING AND CULTIVATION MANAGER] - 03/27/20 2:10 pm [facility] Visiting Nurse, [NON-STAFF] - As Needed Activity/Diet/Wound Care/Special Instructions: Orthopedic Discharge Instructions: 1. Wound care and infection precautions, keep incision dry and covered while showering, no lotions, creams, moisturizers. No soaking, pools, hot tubs. Do not scrub over incision. 2. Weight-bear as tolerated with walker / cane until follow-up. 3. Ice and elevate when necessary. Do not exceed 20 minutes per hour with ice pack. 4. Utilize compression sleeve until seen at first follow up appointment. 5. Pain meds and anticoagulants per prescription. 6. Pain medication has potential to cause constipation. Increase oral fluid and fiber intake. Contact primary care provider if you have not had a bowel movement within 48 hours after discharge. 7. No anti-inflammatory medication until discussed at first post operative visit, this including Motrin, Aleve, Mobic, Diclofenac 8. Follow up in office at 2 weeks postop with Len Nunez PA-C 9. Follow up with your primary care doctor 7-10 days after discharge. 10. Contact [facility] with any questions, . Discharge Disposition: HOME WITH HOME HEALTH SERVICES
--- NOTE | 2020-03-12 15:54 | PN ---
PROGRESS NOTE DATE OF SERVICE: 03/12/2020 This is an 89-year-old woman who was admitted after left total knee arthroplasty, improving significantly, no chest pain. No palpitations. No fever. PHYSICAL EXAM: Alert and oriented x3. Pulse 74, blood pressure 93/59, respirations 16, temperature 98.1, pulse ox 98% on room air. HEENT: Conjunctivae normal. NECK: No jugular venous distension. CARDIOVASCULAR SYSTEM: S1, S2, muffled. RESPIRATION: Breath sounds diminished at the bases, no rhonchi, no crackles. ABDOMEN: Soft, nontender. LEGS: Status post surgery. NERVOUS SYSTEM: No focal deficits. LABS: Hemoglobin 11.1. ASSESSMENT: 1. Status post left total knee arthroplasty. 2. Hypertension. 3. Hyperlipidemia. 4. History of gastroesophageal reflux disease. 5. History of leaky heart valve. 6. History urinary leakage. 7. Remote history hysterectomy. 8. History of degenerative joint disease. RECOMMENDATION: Continue current management and resume the home medications. Closely follow with primary physician in the outpatient setting. I recommend to hold off the Zestril for a few days and resume outpatient otherwise rest of the recommendations per Orthopedic Surgery. Further recommendations to follow. Followup closely with primary physician, Dr. Donohue in 2-3 days. MMODL / IJN: [id number] /
== END 2020-03-12 14:28 | disposition home health service (06) | DRG 470 ==
LOC: 2ORMAIN 08:54 → 4SSUR 12:06
PROVIDERS: ADMIT Orthopaedic Surgery; ATTEND Orthopaedic Surgery
PROC: 0SRB04A Replacement of Left Hip Joint with Ceramic on Polyethylene Synthetic Substitute, Uncemented, Open Approach (ICD-10-PCS; principal; 2020-03-11 10:00)
DX: M16.12 Unilateral primary osteoarthritis, left hip (principal); K21.9 Gastro-esophageal reflux disease without esophagitis; E78.5 Hyperlipidemia, unspecified; I10 Essential (primary) hypertension; Z79.899 Other long term (current) drug therapy; Z86.79 Personal history of other diseases of the circulatory system; Z87.448 Personal history of other diseases of urinary system; Z98.890 Other specified postprocedural states; Z90.710 Acquired absence of both cervix and uterus; Z88.8 Allergy status to other drugs, medicaments and biological substances
CPT/HCPCS: 73501; 85025; 86850; 86900; 86901; 88300

== ENCOUNTER → 2020-08-01 | Outpatient (CLI) | payer MEDICARE ==
[2020-08-01 16:35] LABS: Prothrombin Time 10.4 sec (9.0-12.0)
== END | disposition home or self-care (01) ==
LOC: LABPAT 15:57
PROVIDERS: ATTEND Orthopaedic Surgery
DX: Z01.812 Encounter for preprocedural laboratory examination (principal); M16.11 Unilateral primary osteoarthritis, right hip
CPT/HCPCS: 36415; 85610; 86850; 86900; 86901; 87070

== ENCOUNTER 2020-08-12 08:14 | Day surgery (SDC) | payer MEDICARE ==
[2020-08-05 12:23] VITALS: BMI 27.3
--- NOTE | 2020-08-11 14:13 | HP ---
HISTORY AND PHYSICAL REASON FOR ADMISSION: Surgery 08/12/2020 HISTORY OF PRESENT ILLNESS: Suzanne Schwartz is an 89-year-old patient seen with symptomatic right hip osteoarthritis. We discussed options for treatment. She elected to proceed with right total hip arthroplasty. Consent was obtained. Cardiac clearance was by Dr. Mckeon. Preoperative medical clearance was also performed by Dr. Donohue. PAST MEDICAL HISTORY: Hyperlipidemia. PAST SURGICAL HISTORY: Total hip arthroplasty, hysterectomy, carpal tunnel surgery. MEDICATIONS: Her daily medications are Crestor, multivitamin, omeprazole, Zetia. ALLERGIES: None. SOCIAL HISTORY: She denies current tobacco use. PHYSICAL EXAMINATION: Evaluation of the right hip: There is very limited range of motion with severe pain, diffuse weakness, diffuse tenderness about the hip girdle. Positive hip impingement sign. Her distal neurovascular exam is intact. RADIOGRAPHS: Radiographs of the right hip reveal severe osteoarthritic changes. IMPRESSION: 1. Right hip osteoarthritis. 2. Hyperlipidemia. PLAN: Right total hip arthroplasty. Surgery 08/12/2020. MMODL / IJN: [id number] /
[~2020-08-12 08:14] MED LIST changes: -ACETAMINOPHEN TAB 500 MG TAB PO ONE; +ACETAMINOPHEN TAB 500 MG TAB PO PRN; -DEXAMETHASONE SOD PHOSPHATE 10 MG/ML 1 ML VIAL IV ONE; +DEXAMETHASONE SOD PHOSPHATE 4 MG/ML 1 ML VIAL IV ONE; +HYDROmorphone 0.5 MG/0.5 ML SYRINGE IVP PRN; -MELOXICAM 7.5 MG TAB PO ONE; +MELOXICAM 7.5 MG TAB PO PRN; +MIDAZOLAM 2 MG/2 ML VIAL IV PRN; -MORPHINE SULFATE 2 MG/ML SYRINGE IV PRN; -ROPIVACAINE 246.25 MG, EPINEPHrine 0.5 MG, KETOROLAC 30 MG, cloNIDine HCL/PF 80 MCG, WA... MISCELLANE ONE; +ROPIVACAINE/EPI/CLONIDINE/KET 50 ML SYRINGE MISCELLANE PRN; -TRANEXAMIC ACID 1,000 MG in SODIUM CHLORIDE 0.9% 100 ML IVPB ONE; +TRANEXAMIC ACID 1,000 MG in SODIUM CHLORIDE 0.9% 100 ML IVPB PRN
[2020-08-12] MEDS: LACTATED RINGERS 1,000 ML IV SCH (09:16)
[2020-08-12] MEDS ORDERED: fentaNYL (PF) 50 MCG/ML 2 ML AMP ONE (10:02)
[2020-08-12] MEDS ORDERED: TRANEXAMIC ACID 1,000 MG/10 ML VIAL ONE (10:02)
[2020-08-12] MEDS ORDERED: SODIUM CHLORIDE 0.9% 100 ML BAG ONE (10:02)
[2020-08-12] MEDS ORDERED: PHENYLEPHRINE-0.9% NACL SYG 1,000 MCG/10 ML SYRINGE ONE (10:02)
[2020-08-12] MEDS ORDERED: MIDAZOLAM 2 MG/2 ML VIAL ONE (10:02)
[2020-08-12] MEDS ORDERED: ceFAZolin 1,000 MG in SODIUM CHLORIDE 0.9% 1,000 ML IRRIGATION ONE (10:42)
[2020-08-12] MEDS ORDERED: ONDANSETRON 4 MG/2 ML VIAL IVP PRN (11:38)
[2020-08-12] MEDS ORDERED: NALOXONE 0.4 MG/ML 1 ML VIAL IV PRN (11:38)
[2020-08-12] MEDS ORDERED: HYDROmorphone 0.5 MG/0.5 ML SYRINGE IVP PRN ×2 (11:38)
[2020-08-12] MEDS ORDERED: HYDROmorphone 0.2 MG/1 ML SYRINGE IVP PRN (11:38)
--- NOTE | 2020-08-12 11:38 | P.OP ---
Date of Procedure: 08/12/20 Preoperative Diagnosis: Right hip osteoarthritis Postoperative Diagnosis: Right hip osteoarthritis Procedure(s) Performed: Direct anterior right total hip arthroplasty Implants: 1. Depuy Corail KA size 11 125 with collar press-fit femoral stem 2. Depuy pinnacle 52 mm press-fit multi hole acetabular shell 3. Depuy pinnacle polyethylene acetabular liner 52 mm OD 36 mm ID 4. Biolox delta ceramic femoral head 36 mm +1.5 Anesthesia: local, spinal Surgeon: Laurent Richardson Healthcare Financial Analyst #1: Kimo Nunez Estimated Blood Loss (ml): 55 Pathology: other (Femoral head) Condition: stable Disposition: PACU Indications for Procedure: 89-year-old patient seen with symptomatic right hip osteoarthritis. After treatment options were discussed, she elected to proceed with total hip arthroplasty. Operative Findings: See description of procedure Description of Procedure: The patient was taken to the operative suite. Patient underwent a spinal anesthetic by the department of anesthesia. Patient was then transferred to the [place] table. Patient was given preoperative IV antibiotics and TXA. Both lower extremities were placed in standard leg spars. The hip was then prepped and draped in the normal sterile orthopedic fashion. A standard anterior incision was made beginning 3 cm lateral and 1 cm distal to the ASIS extending 10 cm. Dissection was then carried down through the subcutaneous soft tissues down to the fascia overlying the tensor fascia barry. An incision was now made through the fascia. Careful dissection was taken down exposing the tensor fascia barry muscle. A Cobra retractor was now placed along the medial femoral neck and a second one along the lateral femoral neck. The venous circumflex vessels were now identified, cauterized and clipped. We identified the anterior hip capsule. An incision was made through the hip capsule along the lateral border. I performed a partial anterior capsulectomy. Retractors were now placed around the femoral neck itself. A femoral neck cut was now made with a sagittal saw. It was completed with an osteotome at the lateral neck area. The femoral head was now removed without difficulty. The extremity was now rotated to 45 of external rotation. It was locked in position. Residual labrum was now debrided out. Serial reaming was performed of the acetabulum while Len CARPIO assisted holding an anterior retractor for exposure. Once we reached the appropriate size and a trial was position and fit nicely. The appropriate size was now chosen opened and made available. It was introduced into the acetabulum without difficulty. The C-arm/fluoroscopy was now brought into the operative field. We made sure we had a true AP pelvic view. We now under direct C- arm/fluoroscopy introduced into the acetabular component with appropriate version and inclination. I held the cup in appropriate position well Len CARPIO used a mallet to seat the acetabular component. I noted the component now to be well seated and stable. Acetabular cup introduce her was removed. The C-arm was pulled back. An appropriate liner was introduced and clicked into position. It was felt to be stable. At this point retractors were removed. The extremity was now placed into 120 external rotation with no traction. The leg was now dropped to the ground and adducted. Appropriate retractors were now positioned along the proximal femur. We also placed our femoral look into position. Additional capsular releasing was performed to gain access to the proximal femur. We now used a box osteotome. A canal finder was now utilized. Serial broaching was now performed with the assistance of Len CARPIO tapping the broaches down with a mallet while held the broach in appropriate rotation and position. This was done until we reached the appropriate size with good overall rotational stability. Appropriate calcar planing was performed. A trial head/neck was placed into position. The hip was now reduced. The C- arm/fluoroscopy was brought back into the operative field. I obtained an AP pelvis demonstrating reasonable leg length positioning as well as visualizing good positioning of the trial components. The C-arm/fluoroscopy was pulled back. Retractors were repositioned and the hip was dislocated. The leg was again taken down to the ground and adducted. Appropriate retractors were repositioned as well as the femoral hook. All trial components were removed. The femoral implant was opened along with the femoral head. The femoral implant was introduced on the appropriate handle into our pre-broached area. I held the component position well Len CARPIO used a mallet to seat the femoral component. The femoral component was now noted to be well seated and stable.. The femoral head was introduced with good positioning and fixation noted. Retractors were now removed. The hip was now reduced. There appeared be good positioning of the hip confirmed on intraoperative fluoroscopy. Spot films were obtained to document this. A second gram of TXA was given. The deep and superficial soft tissues were infiltrated with local analgesic. Bipolar cautery had been utilized intermittently through the procedure for hemostasis. The wound was irrigated copiously with pulse lavage mechanical irrigation. The fascia was repaired with Vicryl suture. The subcutaneous soft tissues were repaired in layers with Vicryl suture. The skin was approximated with pernio/Dermabond. Sterile dressings were applied. Patient was then awakened, transferred to a bed and taken to recovery in stable condition. Len CARPIO assisted with the complex procedure.
--- NOTE | 2020-08-12 13:20 | XR ---
EXAMINATION TYPE: XR Hip Limited LT DATE OF EXAM: 08/12/2020 COMPARISON: NONE HISTORY: Postop TECHNIQUE: One view submitted. FINDINGS: There is postsurgical change in near anatomic alignment. There is soft tissue edema and emphysema. IMPRESSION: 1. Postoperative change. Appears in near-anatomic alignment.
--- NOTE | 2020-08-12 13:23 | FL ---
EXAMINATION TYPE: FL guidance operating room DATE OF EXAM: 08/12/2020 HISTORY: Fluoroscopy time 15 seconds of fluoroscopy provided. IMPRESSION: 1. Fluoroscopy time.
[2020-08-12] MEDS: SODIUM CHLORIDE 0.9% 1,000 ML IV SCH (15:16)
[2020-08-12] MEDS ORDERED: NITROGLYCERIN SL TABS 0.4 MG TAB SUBLINGUAL PRN (15:50)
[2020-08-12] MEDS ORDERED: EZETIMIBE 10 MG TAB PO SCH (18:30)
[2020-08-12] MEDS ORDERED: lisinopriL 10 MG TAB PO SCH (18:30)
[2020-08-12] MEDS ORDERED: SENNOSIDES-DOCUSATE SODIUM 1 EACH TAB PO SCH (21:00)
[2020-08-12] MEDS ORDERED: ATORVASTATIN 20 MG TAB PO SCH (21:00)
[2020-08-13] MEDS: SODIUM CHLORIDE 0.9% 1,000 ML IV SCH (00:18)
[2020-08-13] MEDS: HYDROcodone/APAP 5-325MG 1 EACH TAB PO PRN ×4 (00:21→14:27)
[2020-08-13 06:48] VITALS: RESP 18
[2020-08-13] MEDS: LACTATED RINGERS 1,000 ML IV SCH (06:57)
[2020-08-13] MEDS ORDERED: PANTOPRAZOLE 40 MG TABLET PO SCH (07:30)
[2020-08-13] MEDS ORDERED: CHOLECALCIFEROL 25 MCG (1000 IU) TABLET PO SCH (09:00)
[2020-08-13] MEDS ORDERED: ASCORBIC ACID 500 MG TAB PO SCH (09:00)
[2020-08-13] MEDS ORDERED: MULTIVITAMINS, THERA 1 EACH TAB PO SCH (09:00)
[2020-08-13] MEDS ORDERED: ENOXAPARIN 40 MG/0.4 ML SYRINGE SQ SCH (09:00)
[2020-08-13] MEDS ORDERED: FAMOTIDINE 20 MG TAB PO SCH (09:00)
[2020-08-13 10:57] LABS: Basophils # (A) 0.03 X 10*3/uL (0.00-0.10); Basophils % (A) 0.4 %; Eosinophils # (A) 0.08 X 10*3/uL (0.04-0.35); HCT 30.6 % (37.2-46.3); HGB 9.6 g/dL (12.0-15.0); Lymphocytes # (A) 2.39 X 10*3/uL (0.90-5.00); Lymphocytes % (A) 30.7 %; MCH 28.4 pg (27.0-32.0); MCHC 31.4 g/dL (32.0-37.0); MCV 90.5 fL (80.0-97.0); Mean Platelet Volume 10.4 fL (9.5-12.2); Neutrophils # (A) 4.56 X 10*3/uL (1.80-7.70); Neutrophils % (A) 58.5 %; Platelet Count 227 X 10*3/uL (140-440); RBC 3.38 X 10*6/uL (4.10-5.20); WBC 7.79 X 10*3/uL (4.50-10.00)
[2020-08-13 11:28] LABS: African American GFR (CKD) 93.7 (60.0-200.0); Albumin 3.3 g/dL (3.80-4.90); Albumin/Globulin Ratio 2.36 (1.60-3.17); Anion Gap 5.7 mmol/L (4.00-12.00); BUN/Creat Ratio 31.67 Ratio (12.00-20.00); Carbon Dioxide 27.3 mmol/L (21.6-31.8); Globulin 1.4 g/dL (1.6-3.3); Non-African American GFR(CKD) 80.8 (60.0-200.0); Potassium 4.5 mmol/L (3.5-5.5); Total Bilirubin 0.3 mg/dL (0.3-1.2); Total Protein 4.7 g/dL (6.2-8.2)
[2020-08-13] MEDS ORDERED: PREGABALIN 50 MG CAP PO SCH (11:45)
--- NOTE | 2020-08-13 11:50 | P.CONS ---
History of Present Illness - Reason for Consult Peripheral neuropathy - History of Present Illness 89-year-old admitted for right hip arthroplasty patient did denied any hip pain but was comparing of her for neuropathy. Patient denied any fever chills did not move her bowel did pass gas. Patient today is doing very well. Patient is on lisinopril for her hypertension patient doesn't have full At this time. Review of Systems REVIEW OF SYSTEMS: CONSTITUTIONAL: No fever, no malaise, no fatigue. HEENT: No recent visual problems or hearing problems. Denied any sore throat. CARDIOVASCULAR: No chest pain, orthopnea, PND, no palpitations, no syncope. PULMONARY: No shortness of breath, no cough, no hemoptysis. GASTROINTESTINAL: No diarrhea, no nausea, no vomiting, no abdominal pain. NEUROLOGICAL: No headaches, no weakness, no numbness. HEMATOLOGICAL: Denies any bleeding or petechiae. GENITOURINARY: Denies any burning micturition, frequency, or urgency. MUSCULOSKELETAL/RHEUMATOLOGICAL: Denies any joint pain, swelling, or any muscle pain. ENDOCRINE: Denies any polyuria or polydipsia. The rest of the 14-point review of systems is negative. Past Medical History Past Medical History: GERD/Reflux, Hyperlipidemia, Hypertension, Osteoarthritis (OA) Additional Past Medical History / Comment(s): delmar lower leg swelling,2 leaky heart valves, urinary leakage History of Any Multi-Drug Resistant Organisms: None Reported Past Surgical History: Hysterectomy, Joint Replacement, Orthopedic Surgery Additional Past Surgical History / Comment(s): delmar carpal tunnel,total left hip Past Anesthesia/Blood Transfusion Reactions: No Reported Reaction, Family History of Problems w/ Anesthesia Additional Past Anesthesia/Blood Transfusion Reaction / Comm: no hx of blood transfusion,dtr takes a long time to wake up from anesthesia Past Psychological History: No Psychological Hx Reported Smoking Status: Never smoker Past Alcohol Use History: None Reported Past Drug Use History: None Reported - Past Family History Mother Family Medical History: No Reported History Medications and Allergies Home Medications Medication Instructions Recorded Confirmed Type Ezetimibe [Zetia] 10 mg PO PC-SUPPER 06/08/18 08/12/20 History Rosuvastatin [Crestor] 10 mg PO Q48H 06/08/18 08/12/20 History Ascorbic Acid [Vitamin C] 1,000 mg PO DAILY 03/05/20 08/12/20 History Cholecalciferol [Vitamin D3 (25 2,000 unit PO DAILY 03/05/20 08/12/20 History Mcg = 1000 Iu)] Glucosamine/Chondr Mccall A Sod [Osteo 2 each PO DAILY 03/05/20 08/12/20 History Bi-Flex Caplet] Ibuprofen [Motrin] 400 mg PO DIRECTED PRN 03/05/20 08/12/20 History Multivitamins, Thera [Multivitamin 1 tab PO DAILY 03/05/20 08/12/20 History (formulary)] Nitroglycerin Sl Tabs [Nitrostat] 0.4 mg SUBLINGUAL Q5M PRN 03/05/20 08/12/20 History Omeprazole [PriLOSEC] 40 mg PO QAM 03/05/20 08/12/20 History Ubidecarenone [Co Q-10] 200 mg PO DAILY 03/05/20 08/12/20 History Acetaminophen Tab [Tylenol] 325 mg PO Q4H PRN 08/05/20 08/12/20 History Aspirin [Adult Low Dose Aspirin EC] 81 mg PO DAILY 08/05/20 08/12/20 History Pregabalin [Lyrica] 75 mg PO BID 10 Days #20 cap 08/13/20 Rx lisinopriL [Zestril] 10 mg PO PC-SUPPER #0 08/13/20 08/12/20 Rx Allergies Allergy/AdvReac Type Severity Reaction Status Date / Time amoxicillin Allergy facial Verified 08/12/20 09:03 flushing and weak feeling isosorbide AdvReac Abdominal Verified 08/12/20 09:03 Pain Physical Exam Vitals: Vital Signs Temp Pulse Pulse Resp BP Pulse Ox 08/13/20 06:47 98.0 F 73 18 128/82 97 08/13/20 02:00 98.4 F 85 13 80/41 94 L 08/12/20 19:57 61 18 08/12/20 19:20 98.1 F 77 14 83/47 96 08/12/20 15:26 97.8 F 61 18 150/62 98 08/12/20 15:00 71 16 102/59 98 08/12/20 14:11 60 16 103/55 98 08/12/20 13:30 58 L 16 100/50 98 08/12/20 13:01 62 16 103/52 98 08/12/20 12:46 62 16 100/51 98 08/12/20 12:31 61 16 101/51 97 08/12/20 12:15 63 16 97/53 97 08/12/20 11:59 97 F L 73 16 100/50 97 Intake and Output 08/12/20 08/13/20 08/13/20 22:59 06:59 14:59 Other: # Voids 1 3 Weight 65.2 kg PHYSICAL EXAMINATION: GENERAL: The patient is alert and oriented x3, not in any acute distress. Well developed, well nourished. HEENT: Pupils are round and equally reacting to light. EOMI. No scleral icterus. No conjunctival pallor. Normocephalic, atraumatic. No pharyngeal erythema. No thyromegaly. CARDIOVASCULAR: S1 and S2 present. No murmurs, rubs, or gallops. PULMONARY: Chest is clear to auscultation, no wheezing or crackles. ABDOMEN: Soft, nontender, nondistended, normoactive bowel sounds. No palpable organomegaly. MUSCULOSKELETAL: No joint swelling or deformity. EXTREMITIES: No cyanosis, clubbing, or pedal edema. NEUROLOGICAL: Gross neurological examination did not reveal any focal deficits. SKIN: No rashes. Results CBC & Chem 7: 08/13/20 06:40 08/13/20 06:40 Labs: Abnormal Lab Results - Last 24 Hours (Table) 08/13/20 08/13/20 Range/Units 06:40 06:40 RBC 3.38 L (4.10-5.20) X 10*6/uL Hgb 9.6 L (12.0-15.0) g/dL Hct 30.6 L (37.2-46.3) % MCHC 31.4 L (32.0-37.0) g/dL RDW 15.0 H (11.5-14.5) % BUN/Creatinine Ratio 31.67 H (12.00-20.00) Ratio Glucose 111 H (70-110) mg/dL Total Protein 4.7 L (6.2-8.2) g/dL Albumin 3.30 L (3.80-4.90) g/dL Globulin 1.4 L (1.6-3.3) g/dL Assessment and Plan Plan: -Peripheral neuropathy: Patient was started on Lyrica overdose. Explained the side effects and if he ends up having gross asked her to stop this medication. She'll be given prescription for this -B -Gastroesophageal reflux disease -Hypertension: hold off lisinopril for next couple days prevent any perioperative hypotension. -DVT to prophylaxis: Patient is presently on Lovenox
--- NOTE | 2020-08-13 13:31 | P.PN ---
Subjective Progress Note Date: 08/13/20 Principal diagnosis: Status post total right hip arthroplasty S: Upon entering room patient was sitting in chair comfortably eating sandwich. Patient mentioned she is feeling good with minimal pain. Patient rates pain as 4 out of 10. She states there is minimal pain in the hip. She mentions she has been ambulating with walker. When asked about discharge she says she would be good with going home today; her daughter is a nurse and she would live at her daughter's house for 1 week. Patient has not had a bowel movement yet but feels like she will be able to go soon. She is currently eating lunch. Objective - Vital Signs Vital signs: Vital Signs Temp 98.0 F 08/13/20 06:47 Pulse 73 08/13/20 06:47 Resp 18 08/13/20 06:47 BP 128/82 08/13/20 06:47 Pulse Ox 97 08/13/20 06:47 Intake & Output 08/12/20 08/13/20 08/13/20 18:59 06:59 18:59 Intake Total 801 Output Total 55 Balance 746 Weight 65.2 kg Intake: IV 801 Output: Estimated Blood Loss 55 Other: # Voids 0 3 - Exam []: Incision is clean, dry, and intact. The silver foam dressing is in good condition. There is minimal soft tissue swelling and ecchymosis surrounding the medial and lateral aspects of the incision. Calf is soft, no tenderness with palpation. Plantar flexion, dorsiflexion, EHL, FHL are intact. Sensory exam to light touch throughout the extremity is intact, dorsal pedis pulses 2+. - Labs CBC & Chem 7: 08/13/20 06:40 08/13/20 06:40 Labs: Abnormal Lab Results - Last 24 Hours (Table) 08/13/20 08/13/20 Range/Units 06:40 06:40 RBC 3.38 L (4.10-5.20) X 10*6/uL Hgb 9.6 L (12.0-15.0) g/dL Hct 30.6 L (37.2-46.3) % MCHC 31.4 L (32.0-37.0) g/dL RDW 15.0 H (11.5-14.5) % BUN/Creatinine Ratio 31.67 H (12.00-20.00) Ratio Glucose 111 H (70-110) mg/dL Total Protein 4.7 L (6.2-8.2) g/dL Albumin 3.30 L (3.80-4.90) g/dL Globulin 1.4 L (1.6-3.3) g/dL Assessment and Plan Assessment: Postoperative day1 S/P total right hip arthroplasty Plan: Pain control, the patient will be discharged home on [place] 5/325 DVT prophylaxis: Aspirin 81 mg twice a day for 28 days Stool softener as needed Wound care: Wound care discussed with patient Internal medicine recommendations Start physical therapy at home Discharge planning: Patient is stable for discharge. Discharge home today. Time with Patient: Less than 30
--- NOTE | 2020-08-13 13:48 | P.DS ---
Providers Date of admission: 08/12/2020 Expected date of discharge: 08/13/20 Attending physician: Laurent Richardson Consults: 08/12/20 11:38 Consult Physician Routine Consulting Provider: Ingrid Hansen Consult Reason/Comments: Medical management Do you want consulting provider notified?: Yes Primary care physician: Luz Charanjit [facility] Course: Date of admission: 08/12/2020 Date of discharge: 08/13/2020 Admission diagnosis: Status post direct anterior right total hip arthroplasty Discharge diagnosis: Same Attending physician: Dr. Richardson Surgical procedures: Direct anterior right total hip arthroplasty Brief history: Patient is a 89-year-old female with a history of progressive primary right hip osteoarthritis. At this point patient has failed conservative treatment measures and has opted to proceed with a elective direct anterior right hip arthroplasty. Hospital course: Details of patient's surgery can be found in operative report. Patient tolerated the procedure well and was subsequently transported to orthopedic floor. Patient's orthopeidc and medical care was provided daily. Patient had daily laboratory tests performed for evaluation of overall blood counts. Patient had daily physical therapy to include strengthening range of motion as well as education with walker ambulation. Patient was treated with Lovenox for their postoperative DVT prophylaxis during their inpatient stay. Patient was noted to have a relatively uneventful postoperative course. Patient reported satisfactory pain control with oral pain medications by postoperative day 0. Patient showed satisfactory progress with physical therapy. Patient moved steadily through the program and had no difficulty meeting the goals by postoperative day 1. Given patient's otherwise satisfactory course and having met physical therapy goals, plan is to discharge patient home on postoperative day 1. Discharge condition/disposition: Patient will be discharged home in stable condition. Discharge medications: Instructions are given on resumption of patient's normal daily medications per primary care recommendation, in addition patient will be prescribed Traver 5 mg/325 mg, Colace 100 mg, aspirin 81 mg. Discharge instructions: 1. Wound care and infection precautions, keep incision dry and covered while showering, no lotions, creams, moisturizers. No soaking, tubs, pools, hottubs. Do not scrub over the incision. 2. Weight-bear as tolerated with walker / cane until follow-up. 3. Ice and elevate when necessary. Do not exceed 20 minutes per hour with ice pack. 4. Utilize compression sleeve until seen at first follow up appointment. 5. Visiting nursing care. 6. Home physical therapy. 7. Pain meds and anticoagulants per prescription. 8. Pain medication has potential to cause constipation. Increase oral fluid and fiber intake. Contact primary care provider if you have not had a bowel movement within 48 hours after discharge 9. No anti-inflammatory medication until discussed at first post operative visit, this including Motrin, Aleve, Mobic, Diclofenac, . 10. Follow up in office at 2 weeks postop with Len Nunez PA-C 11. Follow up with your primary care doctor 7-10 days after discharge. 12. Contact [facility] with any questions, . Procedures: Direct anterior total right hip arthroplasty Patient Condition at Discharge: Good Plan - Discharge Summary Discharge Rx Participant: No New Discharge Prescriptions: New Pregabalin [Lyrica] 75 mg PO BID 10 Days #20 cap Aspirin [Adult Low Dose Aspirin EC] 81 mg PO BID #60 tablet. Docusate [Colace] 100 mg PO DAILY #30 capsule HYDROcodone/APAP 5-325MG [Traver 5-325] 1 tab PO Q6HR PRN 3 Days #28 tab PRN Reason: Pain Continue Rosuvastatin [Crestor] 10 mg PO Q48H Ezetimibe [Zetia] 10 mg PO PC-SUPPER Omeprazole [PriLOSEC] 40 mg PO QAM Nitroglycerin Sl Tabs [Nitrostat] 0.4 mg SUBLINGUAL Q5M PRN PRN Reason: Chest Pain Ibuprofen [Motrin] 400 mg PO DIRECTED PRN PRN Reason: Pain Ubidecarenone [Co Q-10] 200 mg PO DAILY Cholecalciferol [Vitamin D3 (25 Mcg = 1000 Iu)] 2,000 unit PO DAILY Ascorbic Acid [Vitamin C] 1,000 mg PO DAILY Multivitamins, Thera [Multivitamin (formulary)] 1 tab PO DAILY Glucosamine/Chondr Mccall A Sod [Osteo Bi-Flex Caplet] 2 each PO DAILY Aspirin [Adult Low Dose Aspirin EC] 81 mg PO DAILY Acetaminophen Tab [Tylenol] 325 mg PO Q4H PRN PRN Reason: Pain lisinopriL [Zestril] 10 mg PO PC-SUPPER #0 Discharge Medication List Ezetimibe [Zetia] 10 mg PO PC-SUPPER 06/08/18 [History] Rosuvastatin [Crestor] 10 mg PO Q48H 06/08/18 [History] Ascorbic Acid [Vitamin C] 1,000 mg PO DAILY 03/05/20 [History] Cholecalciferol [Vitamin D3 (25 Mcg = 1000 Iu)] 2,000 unit PO DAILY 03/05/20 [History] Glucosamine/Chondr Mccall A Sod [Osteo Bi-Flex Caplet] 2 each PO DAILY 03/05/20 [History] Ibuprofen [Motrin] 400 mg PO DIRECTED PRN 03/05/20 [History] Multivitamins, Thera [Multivitamin (formulary)] 1 tab PO DAILY 03/05/20 [History] Nitroglycerin Sl Tabs [Nitrostat] 0.4 mg SUBLINGUAL Q5M PRN 03/05/20 [History] Omeprazole [PriLOSEC] 40 mg PO QAM 03/05/20 [History] Ubidecarenone [Co Q-10] 200 mg PO DAILY 03/05/20 [History] Acetaminophen Tab [Tylenol] 325 mg PO Q4H PRN 08/05/20 [History] Aspirin [Adult Low Dose Aspirin EC] 81 mg PO BID #60 tablet. 08/13/20 [Rx] Docusate [Colace] 100 mg PO DAILY #30 capsule 08/13/20 [Rx] HYDROcodone/APAP 5-325MG [Traver 5-325] 1 tab PO Q6HR PRN 3 Days #28 tab 08/13/20 [Rx] Pregabalin [Lyrica] 75 mg PO BID 10 Days #20 cap 08/13/20 [Rx] lisinopriL [Zestril] 10 mg PO PC-SUPPER #0 08/13/20 [Rx] Follow up Appointment(s)/Referral(s): Luz Donohue MD [Primary Care Provider] - 1 Week [facility], [NON-STAFF] - As Needed Kimo Nunez PAC [PHYSICIAN CREATIVE PROJECT MANAGER] - 08/28/20 2:10 pm Activity/Diet/Wound Care/Special Instructions: Orthopedic Discharge Instructions: 1. Wound care and infection precautions, keep incision dry and covered while showering, no lotions, creams, moisturizers. No soaking, pools, hot tubs. Do not scrub over incision. 2. Weight-bear as tolerated with walker / cane until follow-up. 3. Ice and elevate when necessary. Do not exceed 20 minutes per hour with ice pack. 4. Utilize compression sleeve until seen at first follow up appointment. 5. Pain meds and anticoagulants per prescription. 6. Pain medication has potential to cause constipation. Increase oral fluid and fiber intake. Contact primary care provider if you have not had a bowel movement within 48 hours after discharge. 7. No anti-inflammatory medication until discussed at first post operative visit, this including Motrin, Aleve, Mobic, Diclofenac, . 8. Follow up in office at 2 weeks postop with Len Nunez PA-C 9. Follow up with your primary care doctor 7-10 days after discharge. 10. Contact [facility] with any questions, . Wound care instructions: In 7 days patient may remove foam dressing. While dressing is in place cover dressing with plastic wrap while showering Discharge Disposition: HOME WITH HOME HEALTH SERVICES
[2020-08-13 14:21] VITALS: BP 96/56; PULSE 101; TEMP 98.5
[2020-08-13] MEDS ORDERED: lisinopriL 10 MG TAB PO SCH (18:30)
== END 2020-08-13 15:18 | disposition home health service (06) ==
LOC: OR 08:14 → 4SSUR 12:59 → OR 08-13 15:18
PROVIDERS: ATTEND Orthopaedic Surgery
DX: M16.11 Unilateral primary osteoarthritis, right hip (principal); Z96.641 Presence of right artificial hip joint; E78.5 Hyperlipidemia, unspecified; K21.9 Gastro-esophageal reflux disease without esophagitis; Z90.79 Acquired absence of other genital organ(s); G62.9 Polyneuropathy, unspecified; Z79.82 Long term (current) use of aspirin; Z79.899 Other long term (current) drug therapy; Z88.0 Allergy status to penicillin; Z88.8 Allergy status to other drugs, medicaments and biological substances
CPT/HCPCS: 27130; 97110; 97161; 80053; 85025; 88300; 73501; C1776; J2250; J1100; J0690 ×3; J2405; J1650; J3010; J2370; 36415; 86850; 86900; 86901